=== PATIENT | male | born 1975 | race Caucasian/White ===

== ENCOUNTER 2020-07-03 12:58 | Outpatient (REF) | payer OTHER, SELFPAY | END 2020-07-03 12:59 | disposition home or self-care (01) | LOC: HO.BBR 12:58 | PROVIDERS: Visit Provider Internal Medicine Medical Oncology | DX: D75.1 Secondary polycythemia (principal) | CPT/HCPCS: 36415; 85014; 85018; 99195 ==

== ENCOUNTER 2020-07-20 08:15 | Outpatient (REF) | payer OTHER, SELFPAY ==
[2020-07-20 09:34] LABS: Cholesterol 221 mg/dL; HDL Cholesterol 40 mg/dL; LDL Cholesterol Calculated 162 mg/dl; Triglycerides 95 mg/dL
== END 2020-07-20 08:16 | disposition home or self-care (01) ==
LOC: HO.LAB 08:15
PROVIDERS: Visit Provider Internal Medicine
DX: E78.00 Pure hypercholesterolemia, unspecified (principal)
CPT/HCPCS: 80061

== ENCOUNTER 2020-10-02 13:04 | Outpatient (REF) | payer OTHER, SELFPAY | END 2020-10-02 13:05 | disposition home or self-care (01) | LOC: HO.BBR 13:04 | PROVIDERS: Visit Provider Internal Medicine Medical Oncology | DX: D75.1 Secondary polycythemia (principal) | CPT/HCPCS: 85018; 99195 ==

== ENCOUNTER → 2020-10-05 10:31 | Outpatient (BNV) | payer OTHER, SELFPAY | PROVIDERS: PCP Internal Medicine; Visit Provider Internal Medicine Medical Oncology | DX: D75.1 Secondary polycythemia (principal) | CPT/HCPCS: 99213 ==

== ENCOUNTER 2021-01-01 13:08 | Outpatient (REF) | payer OTHER, SELFPAY | END 2021-01-01 13:09 | disposition home or self-care (01) | LOC: HO.BBR 13:08 | PROVIDERS: PCP Internal Medicine; Visit Provider Internal Medicine Medical Oncology | DX: D75.1 Secondary polycythemia (principal) | CPT/HCPCS: 85018; 99195 ==

== ENCOUNTER 2021-04-02 13:11 | Outpatient (REF) | payer OTHER, SELFPAY | END 2021-04-02 13:12 | disposition home or self-care (01) | LOC: HO.BBR 13:11 | PROVIDERS: PCP Internal Medicine; Visit Provider Internal Medicine Medical Oncology | DX: D75.1 Secondary polycythemia (principal) | CPT/HCPCS: 85018; 99195 ==

== ENCOUNTER 2021-06-24 14:02 | Outpatient (REF) | payer OTHER, SELFPAY | END 2021-06-24 14:03 | disposition home or self-care (01) | LOC: HO.BBR 14:02 | PROVIDERS: Visit Provider Internal Medicine Medical Oncology | DX: D75.1 Secondary polycythemia (principal) | CPT/HCPCS: 85018; 99195 ==

== ENCOUNTER 2021-09-24 13:56 | Outpatient (REF) | payer OTHER, SELFPAY | END 2021-09-24 13:57 | disposition home or self-care (01) | LOC: HO.BBR 13:56 | PROVIDERS: Visit Provider Internal Medicine Medical Oncology | DX: D75.1 Secondary polycythemia (principal) | CPT/HCPCS: 85018; 99195 ==

== ENCOUNTER 2021-12-24 13:06 | Outpatient (REF) | payer OTHER, SELFPAY | END 2021-12-24 13:07 | disposition home or self-care (01) | LOC: HO.BBR 13:06 | PROVIDERS: Visit Provider Internal Medicine Medical Oncology | DX: D75.1 Secondary polycythemia (principal) | CPT/HCPCS: 85014; 85018; 99195 ==

== ENCOUNTER 2022-03-25 13:00 | Outpatient (REF) | payer OTHER, SELFPAY | END 2022-03-25 13:01 | disposition home or self-care (01) | LOC: HO.BBR 13:00 | PROVIDERS: Visit Provider Internal Medicine Medical Oncology | DX: D75.1 Secondary polycythemia (principal) | CPT/HCPCS: 85018; 99195 ==

== ENCOUNTER 2022-06-24 13:02 | Outpatient (REF) | payer OTHER, SELFPAY | END 2022-06-24 13:03 | disposition home or self-care (01) | LOC: HO.BBR 13:02 | PROVIDERS: Visit Provider Internal Medicine Medical Oncology | DX: D75.1 Secondary polycythemia (principal) | CPT/HCPCS: 85018; 99195 ==

== ENCOUNTER 2022-09-23 12:59 | Outpatient (REF) | payer OTHER, SELFPAY | END 2022-09-23 13:00 | disposition home or self-care (01) | LOC: HO.BBR 12:59 | PROVIDERS: PCP Internal Medicine; Visit Provider Internal Medicine Medical Oncology | DX: D75.1 Secondary polycythemia (principal) | CPT/HCPCS: 85018; 99195 ==

== ENCOUNTER 2022-12-05 14:05 | Outpatient (REF) | payer OTHER, SELFPAY | END 2022-12-05 14:06 | disposition home or self-care (01) | LOC: HO.BBR 14:05 | PROVIDERS: Visit Provider Internal Medicine Medical Oncology | DX: D75.1 Secondary polycythemia (principal) | CPT/HCPCS: 85014; 85018; 99195 ==

== ENCOUNTER 2023-01-27 12:59 | Outpatient (REF) | payer OTHER, SELFPAY | END 2023-01-27 13:00 | disposition home or self-care (01) | LOC: HO.BBR 12:59 | PROVIDERS: PCP Internal Medicine; Visit Provider Internal Medicine Medical Oncology | DX: D75.1 Secondary polycythemia (principal) | CPT/HCPCS: 85014; 85018; 99195 ==

== ENCOUNTER 2023-02-21 07:58 | Outpatient (AMB) | payer OTHER, SELFPAY ==
--- NOTE | 2023-02-21 08:00 | A.OFFVIS_ITS ---
Intake Vital Signs 02/21/23 08:01 Height 5 ft 11 in Weight 227 lb 1.218 oz BMI 31.7 BP 130/84 Blood Pressure Location Lt brachial Position Sitting Pulse 82 Intake Visit Reasons: Colonoscopy screening Intake Note: Adam presents in the office as a Colonoscopy Screening. CC: He states that he is not having any concerns today. 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 He is referred by Ovi Verma of [facility] [place] [facility] primary care. PMX Allergic rhinitis LUIS a Anxiety/insomnia Obesity * SURGICAL HISTORY Appendectomy LASIK surgery * ALLERGIES: NKDA * [employer] LABS: Laboratory Tests 12/02/22 12/02/22 13:07 13:07 WBC 7.9 Hgb 17.2 Hct 51.5 Plt Count 243 Estimated GFR > 60 Total Bilirubin 0.8 AST 21 ALT 36 Alkaline Phosphata se 72 TODAY'S VISIT This is his first colonoscopy. He denies any bowel or upper GI problems. There are no prior problems with anesthesia or sedation. He denies any cardiac or respiratory problems There are no ID problems. His father had colon polyps removed. [facility] Medical History Acute seasonal allergic rhinitis Generalized anxiety disorder Insomnia, idiopathic Obesity (BMI 30.0-34.9) Obstructive sleep apnea Surgical History Hx of appendectomy Hx of LASIK Family History Father Stroke Mother No problems noted. Sister Healthy adult Brother Healthy adult Mother Breast cancer Maternal Grandfather Heart attack Social History Household Members: Significant Other Housing: House Are you a primary healthcare sales representative to a significant other at home: No Do you presently have visiting nurse or other home services: No Alcohol intake: current Alcohol intake frequency: a few times a week Patient Tobacco Use Status: Never used Tobacco Years Smoked: 1 year - childhood service: No Current occupational status: employed Review of Systems Const Denies fatigue, Denies fever(s), Denies night sweats, Denies poor appetite and Denies weight loss ENT Reports Normal hearing present, Denies dental pain, Denies dysphagia, Denies hearing loss, Denies mouth pain, Denies odynophagia, Denies throat swelling, Denies tongue swelling and Reports other (Dentition adequate) Card Reports no additional complaints Resp Reports no additional complaints GI Denies abdominal pain, Denies melena, Denies bloating, Denies hematochezia, Denies constipation, Denies GI cramping, Denies dysphagia, Denies excessive flatus, Denies early satiety, Denies heartburn, Denies diarrhea, Denies nausea, Denies odynophagia, Denies vomiting and Denies hematemesis Skin/Breast Denies pruritus, Denies lesions, Denies rash and Denies jaundice Neuro Reports Normal hearing present and Denies Abnormal speech present Endo Denies fatigue Aller/Immun Denies throat swelling and Denies tongue swelling Physical Exam Vital Signs: Last Vital Signs Pulse 82 02/21/23 08:01 BP 130/84 02/21/23 08:01 BMI result Body Mass Index 31.7 Const General: cooperative, no acute distress, well developed and well groomed Nutritional Appearance: well nourished and overweight Orientation/consciousness: oriented to person, oriented to place and oriented to time Limitations: No language barrier HEENT Head: Yes normocephalic and Yes atraumatic Eyes General: appearance normal, both eyes and all related structures Pupils: Equal, round and reactive pupils present Neck Neck: Yes normal visual inspection and Yes no lymphadenopathy Thyroid: Thyroid normal Resp Effort & Inspection: normal respiratory effort and able to speak in complete sentences Auscultation: clear to auscultation bilaterally Cardio Rate: regular rate Rhythm: regular rhythm Heart sounds: Normal, physiologic split S2 sound present Peripheral pulses: radial pulses present and posterior tibial pulses present GI Inspection: No distended, No Abdominal panniculus present, Yes obesity and Yes scar Palpation (GI): Soft to palpation, nontender, no guarding, not rigid and No hepatosplenomegaly present Percussion: Yes normal to percussion Auscultation: normal bowel sounds Rectal Exam - Male: Yes deferred Skin General skin exam: no rashes or lesions noted, turgor normal, skin not dry, no jaundice, No spider nevi and no striae Rashes: no rashes Nails: normal Neuro General: oriented to person, oriented to place and oriented to time Cranial nerves: Yes Equal, round and reactive pupils present and Yes Normal hearing present Speech: No Abnormal speech present Extrem General: Yes normal to inspection, No clubbing, No cyanosis and No edema Psych Appearance: grossly normal and well kempt Mental Status: mental status grossly normal Speech and movement: Normal speech and movement present Affect: normal affect Attitude: cooperative Thought process: Normal thought process present and not confabulating Thought content: Normal thought content present Insight: Good insight present (Psych) Judgement: Good judgement present (Psych) Assessment & Plan Assessment & Plan (1) Pre-op examination: Code(s): Z01.818 - Encounter for other preprocedural examination Plan: This is his first colonoscopy. He denies any bowel or upper GI problems. There are no prior problems with anesthesia or sedation. He denies any cardiac or respiratory problems There are no ID problems. His father had colon polyps removed. Medications: New peg 3350-electrolytes 236-22.74-6.74 -5.86 gram (Golytely) until fecal effluent is clear; do not exceed a total volume of 2,000 mL 240 mL PO Q10M 1 day 4,000 mL 0RF Z12.11 - Encounter for screening for malignant neoplasm of colon Coding Level of Care Code New Pt Level 3 (92713) Diagnoses Pre-op examination Z01.818
[2023-02-21 08:01] VITALS: BP 130/84; PULSE 82; BMI 31.7
== END 2023-02-21 08:58 | disposition home or self-care (01) ==
PROVIDERS: PCP Internal Medicine; Visit Provider Nurse Practitioner
DX: Z01.818 Encounter for other preprocedural examination (principal); Z12.11 Encounter for screening for malignant neoplasm of colon
CPT/HCPCS: S0285

== ENCOUNTER → 2023-02-21 07:58 | Outpatient (BNVA) | payer OTHER, SELFPAY | PROVIDERS: PCP Internal Medicine; Visit Provider Nurse Practitioner ==

== ENCOUNTER 2023-03-23 08:53 | Outpatient (REF) | payer OTHER, SELFPAY ==
--- NOTE | ~2023-03-23 | XR_ITS ---
EXAMINATION: XR CHEST CLINICAL INFORMATION: Sleep apnea. COMPARISON: None available. TECHNIQUE: 2 views of the chest were obtained. FINDINGS: The lung volumes are low. The cardiomediastinal silhouette is within normal limits for technique and level of inspiration. There is no focal lung consolidation or pleural effusion. The bony structures and soft tissues are unremarkable. XR/XR chest 2V IMPRESSION: Low lung volumes limits evaluation. No evidence for active cardiopulmonary disease.
[2023-03-23 10:30] LABS: MANUAL DIFF FLAG NO
[2023-03-23 10:43] LABS: Basophils Absolute Auto 0.1 X10*3/uL (0.0-0.2); Basophils Percent Auto 1.5 % (0-2); Eosinophils Absolute Auto 0.2 X10*3/uL (0.0-0.4); Eosinophils Percent Auto 3.7 % (0-4); Hematocrit 52.3 % (42.0-52.0); Imm Gran Abs Auto 0.05 X10*3/uL (0.00-0.03); Lymphocytes Absolute Auto 1.5 X10*3/uL (1.2-4.9); Lymphocytes Percent Auto 29.6 % (20-40); Mean Corpuscular HGB Conc 32.5 g/dl (31.0-36.0); Mean Corpuscular Hemoglobin 27.7 pg (27.0-33.0); Mean Corpuscular Volume 85.3 fL (80.0-98.0); Mean Platelet Volume 10.2 fL (9.4-12.4); Monocytes Absolute Auto 0.6 X10*3/uL (0.1-1.2); Monocytes Percent Auto 12.1 % (2-11); Neutrophils Absolute Auto 2.7 x10*3/uL (2.0-8.3); Neutrophils Percent Auto 52.1 % (45-73); Platelet Count 260 X10*3/uL (160-400); Red Blood Count 6.13 X10*6/uL (4.60-5.80); Red Cell Distribution Width 14.4 % (11.0-16.0); White Blood Count 5.2 X10*3/uL (4.8-10.8)
[2023-03-23 10:53] LABS: Estimated Average Glucose 94 mg/dL; Hemoglobin A1c % 4.9 % (<6.0)
[2023-03-23 11:17] LABS: Alanine Aminotransferase 32 U/L (0-40); Albumin Level 4.2 g/dL (3.5-5.0); Alkaline Phosphatase 68 U/L (39-117); Anion Gap 10 (12-20); Aspartate Amino Transferase 24 U/L (5-37); Bilirubin Total 0.8 mg/dL (0.0-1.0); Blood Urea Nitrogen 13 mg/dL (9-16); Calcium 9.4 mg/dL (8.4-10.2); Carbon Dioxide 25 mmol/L (22-29); Chloride 106 mmol/L (96-108); Cholesterol 207 mg/dL (<200); Estimated Glomerular Filt Rate > 60; Glucose Random 98 mg/dL (60-115); HDL Cholesterol 40 mg/dL (>40); LDL Cholesterol Calculated 148 mg/dL (<100); Potassium 4.3 mmol/L (3.3-5.1); Sodium 137 mmol/L (135-145); Total Protein 7.4 g/dL (6.5-8.0); Triglycerides 98 mg/dL (<150)
[2023-03-23 11:33] LABS: Free T4 (Free Thyroxine) 0.97 ng/dL (0.71-1.85); Thyroid Stimulating Hormone 2.11 uIU/mL (0.32-4.0)
[2023-03-23 11:46] LABS: Folate 13.6 ng/mL (> or = 4.0); Vitamin B12 1854 pg/mL (200-900)
[2023-03-28 13:18] LABS: Testosterone, Total 692 ng/dL (250-1100)
== END 2023-03-23 08:54 | disposition home or self-care (01) ==
LOC: HO.LAB 08:53
PROVIDERS: Visit Provider Internal Medicine
DX: D75.1 Secondary polycythemia (principal); R73.9 Hyperglycemia, unspecified; G47.33 Obstructive sleep apnea (adult) (pediatric); E78.00 Pure hypercholesterolemia, unspecified
CPT/HCPCS: 36415; 71046; 80053; 80061; 82607; 82746; 83036; 84403; 84439; 84443; 85025

== ENCOUNTER 2023-04-07 12:30 | Outpatient (REF) | payer OTHER, SELFPAY | END 2023-04-07 12:31 | disposition home or self-care (01) | LOC: HO.BBR 12:30 | PROVIDERS: PCP Internal Medicine; Visit Provider Internal Medicine Medical Oncology | DX: D75.1 Secondary polycythemia (principal) | CPT/HCPCS: 85018; 99195 ==

== ENCOUNTER 2023-04-11 11:21 | Outpatient (AMB) | payer OTHER, SELFPAY ==
[2023-04-11 11:24] VITALS: BP 132/78; PULSE 102; O2SAT 95; BMI 31.7
--- NOTE | 2023-04-11 11:24 | MHC.PC.OV ---
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 Accompanied by: Self / Same As Patient Allergies Seasonal Allergies Allergy (Verified 04/11/23 11:27) Unknown Medication List - Last Reconciled 04/11/23 by Ovi Verma MD aspirin 81 mg PO DAILY [AUTO PAP 6-16 cm H20 humidified AIR As directed] ergocalciferol (vitamin D2) 1,000 units PO DAILY fluticasone propionate 50 mcg/actuation 1 spray intranasal DAILY olopatadine 0.2% 1 drp ophthalmic (eye) BEDTIME peg 3350-electrolytes 236-22.74-6.74 -5.86 gram (Golytely) 240 mL PO Q10M 1 day Tobacco use date assessed: 12/16/22 Dental Screening Dental Screen Date: 04/11/23 Did you have a dental visit in the last 12 months?: Yes Did you have a dental problem in the last 6 months where you did not have access to dental care?: No Was dental information given to patient?: Patient has dentist HPI 3 MONTH F/U HPI Details 78-year-old obese male with an elevated blood sugar hypercholesterolemia obstructive sleep apnea and erythrocytosis last seen in November 2022 patient is here for follow-up patient follows up with hematology oncology and has therapeutic phlebotomy erythrocytosis likely account for associated hypoxemia patient on baby aspirin. Patient continues with the therapeutic phlebotomy. Has met with the aircraft cleaning supervisor and will be scheduled for colonoscopy. As for the blood work done noted elevated cholesterol but it is a little bit better on diet. Patient feels the cholesterol is more genetic and he does have a good diet. Keeps active with exercise. As for the sleep apnea patient uses the CPAP more than 4 hours a night and benefits from this. Discussed that this may be the time to do a note prescription for the CPAP. Two thousand eighteen last sleep study. [facility] Medical History Acute seasonal allergic rhinitis Generalized anxiety disorder Insomnia, idiopathic Obesity (BMI 30.0-34.9) Obstructive sleep apnea Surgical History Hx of LASIK Hx of appendectomy Family History (Updated 04/11/23 @ 11:28 by TC Amador) Father Stroke Mother No problems noted. Sister Healthy adult Brother Healthy adult Mother Breast cancer Maternal Grandfather Heart attack Social History Household Members: Significant Other Housing: House Are you a primary critical care rn to a significant other at home: No Do you presently have visiting nurse or other home services: No Alcohol intake: current Alcohol intake frequency: a few times a week Patient Tobacco Use Status: Never used Tobacco Years Smoked: 1 year - childhood e-Cigarette/Vaping Use: Never Used Second Hand Smoke Exposure: No service: No Current occupational status: employed Current occupational exposures/hazards: No Cognitive needs: No Hearing needs: No Vision needs: No Questionnaire Thrive Questionnaire Date Thrive assessed: 12/16/22 AURY-7 AMB Questionnaire AURY-7 Date AURY - 7 assessed: 12/16/22 Source: Developed by Drs. Song Wolff, Cyndi Marie, Bernardo Garay and colleagues, with an educational nikkie from [employer]. Physical exam (Primary Care) Vital Signs: Last Vital Signs Pulse 102 H 04/11/23 11:24 BP 132/78 04/11/23 11:24 Pulse Ox 95 04/11/23 11:24 Oxygen Delivery Method Room Air 04/11/23 11:24 BMI result Body Mass Index 31.7 Tobacco/Smoking Status: Tobacco use Status Tobacco use date assessed 12/16/22 04/11/23 11:30 Patient Tobacco Use Status Never used Tobacco 04/11/23 11:30 e-Cigarette/Vaping Use Never Used 04/11/23 11:30 Thrive Assessment: Date of Thrive Assessment Date Thrive assessed 12/16/22 04/11/23 11:30 Const General: alert; No acute distress Eyes Conjunctivae: conjunctivae normal Resp Auscultation: clear to auscultation bilaterally Cardio Rate: regular rate Rhythm: regular rhythm GI Inspection: Yes normal to inspection Extrem General: Yes normal to inspection and No edema Assessment and Plan Assessment & Plan (1) Colon cancer screening: Code(s): Z12.11 - Encounter for screening for malignant neoplasm of colon Plan: Patient has met with the aircraft cleaning supervisor but has not made a schedule yet. (2) Hypercholesterolemia: Code(s): E78.00 - Pure hypercholesterolemia, unspecified Plan: Avoid fried foods, chicken skin, eggs, butter margarine, pastries and meat. Be it pork or beef they have a lot of cholesterol LDL goal of less than 130 and triglyceride of less than 150. Would rather do diet and exercise (3) Erythrocytosis: Code(s): D75.1 - Secondary polycythemia Plan: Patient continues to follow-up with Hematology-Oncology on therapeutic phlebotomy (4) Obesity (BMI 30.0-34.9): Code(s): E66.9 - Obesity, unspecified Plan: Diet and exercise (5) Obstructive sleep apnea: Comment: CPAP sleep study test 2017 Code(s): G47.33 - Obstructive sleep apnea (adult) (pediatric) Plan: Continues to use the CPAP more than 4 hours a night and benefits from this Medications: New [AUTO PAP 6-16 cm H20 humidified AIR] As directed 1 ea 0RF G47.33 - Obstructive sleep apnea (adult) (pediatric) Coding Level of Care Code Est Pt Level 4 (57216) Diagnoses Colon cancer screening Z12.11 Hypercholesterolemia E78.00 Erythrocytosis D75.1 Obesity (BMI 30.0-34.9) E66.9 Obstructive sleep apnea G47.33
== END 2023-04-11 12:13 | disposition home or self-care (01) ==
PROVIDERS: PCP Internal Medicine; Visit Provider Internal Medicine
DX: E78.00 Pure hypercholesterolemia, unspecified (principal); Z12.11 Encounter for screening for malignant neoplasm of colon; E66.9 Obesity, unspecified; Z68.31 Body mass index [BMI] 31.0-31.9, adult; D75.1 Secondary polycythemia; G47.33 Obstructive sleep apnea (adult) (pediatric)
CPT/HCPCS: 99214

== ENCOUNTER 2023-06-09 12:03 | Outpatient (REF) | payer OTHER, SELFPAY | END 2023-06-09 12:04 | disposition home or self-care (01) | LOC: HO.BBR 12:03 | PROVIDERS: PCP Internal Medicine; Visit Provider Internal Medicine Medical Oncology | DX: D75.1 Secondary polycythemia (principal) | CPT/HCPCS: 85018; 99195 ==

== ENCOUNTER 2023-08-25 08:24 | Outpatient (REF) | payer OTHER, SELFPAY | END 2023-08-25 08:25 | disposition home or self-care (01) | LOC: HO.BBR 08:24 | PROVIDERS: PCP Internal Medicine; Visit Provider Internal Medicine Medical Oncology | DX: D75.1 Secondary polycythemia (principal) | CPT/HCPCS: 85018; 99195 ==

== ENCOUNTER 2023-08-30 07:24 | Day surgery (SDC) | payer OTHER, SELFPAY ==
[2023-08-28 13:54] VITALS: BMI 31.7
--- NOTE | 2023-08-29 11:40 | P.CONAN_ITS ---
Documented by User: Giana Perez NP 08/29/23 11:43 HPI - Anesthesia Eval Consult details Narrative: 48yo M for Colonoscopy Erythrocytosis with therapeutic phlebs Q3 months PMFSH Active Problems Active Problems: All Active Problems (Updated 08/28/23 @ 13:54 by Andra Peraza RN) Pre-op examination (Acute) Colon cancer screening (Acute) Hypercholesterolemia (Acute) Elevated blood sugar (Acute) Erythrocytosis (Acute) Generalized anxiety disorder (Acute) Insomnia, idiopathic (Acute) Obesity (BMI 30.0-34.9) (Acute) Obstructive sleep apnea (Acute) Past Medical History Medical History (Updated 08/28/23 @ 13:54 by Andra Peraza RN) COVID-19 Erythrocytosis Generalized anxiety disorder Insomnia, idiopathic Acute seasonal allergic rhinitis Obesity (BMI 30.0-34.9) Obstructive sleep apnea Family History Family History (Updated 04/11/23 @ 11:28 by TC Amador) Father Stroke Mother No problems noted. Sister Healthy adult Brother Healthy adult Mother Breast cancer Maternal Grandfather Heart attack Surgical History Surgical History (Updated 08/28/23 @ 13:54 by Andra Peraza RN) Hx of wisdom tooth extraction Hx of LASIK Hx of appendectomy Social History Social History Household Members: Significant Other Housing: House Are you a primary critical care nurse to a significant other at home: No Do you presently have visiting nurse or other home services: No Alcohol intake: current Alcohol intake frequency: does not drink Patient Tobacco Use Status: Never used Tobacco Years Smoked: 1 year - childhood e-Cigarette/Vaping Use: Never Used Second Hand Smoke Exposure: No Use of substances other than those prescribed or required for medical reasons: No Have you been hit, kicked, punched, or otherwise hurt by someone within the past year? If so, by whom?: No Are you DNR?: No Advance Directives: No Advance Directives Information Provided: Yes Advance Directives on File: No Recently lost weight without trying: No Eating poorly because of decreased appetite: No Nutrition Risks: No Nutritional Risk Poor oral hygiene: No service: No Current occupational status: employed Current occupational exposures/hazards: No Cognitive needs: No Hearing needs: No Vision needs: No Meds Allergies Allergy/AdvReac Type Severity Reaction Status Date / Time Seasonal Allergies Allergy Unknown Verified 04/11/23 11:27 Home Medications Medication Instructions Recorded Confirmed Last Taken Type fluticasone propionate 50 1 spray intranasal DAILY PRN 07/06/20 08/28/23 Unknown History mcg/actuation nasal Allergy Symptoms spray,suspension aspirin 81 mg tablet,delayed 81 mg PO DAILY 10/05/20 08/28/23 08/24/23 History release ergocalciferol (vitamin D2) 1,000 1,000 unit PO DAILY 10/05/20 08/28/23 08/24/23 History unit capsule olopatadine 0.2 % eye drops 1 drp ophthalmic (eye) BEDTIME PRN 12/16/22 08/28/23 Unknown History Allergy Symptoms Exam Height,Weight and Vital Signs: Height 5 ft 11 in Weight 102.965 kg Pertinent Lab Results Pertinent Lab Results: Laboratory Tests 06/05/23 14:19 WBC 5.7 Hgb 16.2 Hct 48.9 Plt Count 252 Sodium 141 Potassium 4.1 Chloride 106 Carbon Dioxide 28 BUN 15 Creatinine 1.06 Assessment and Plan Assessment Anesthesia Assessment: Chart Reviewed Documented by User: Armida Mayers MD 08/30/23 07:57 PMFSH Past Medical History Medical History (Updated 08/28/23 @ 13:54 by Andra Peraza RN) COVID-19 Erythrocytosis Generalized anxiety disorder Insomnia, idiopathic Acute seasonal allergic rhinitis Obesity (BMI 30.0-34.9) Obstructive sleep apnea Family History Family History (Updated 04/11/23 @ 11:28 by TC Amador) Father Stroke Mother No problems noted. Sister Healthy adult Brother Healthy adult Mother Breast cancer Maternal Grandfather Heart attack Family history of problems with anesthesia: No Surgical History Surgical History (Updated 08/28/23 @ 13:54 by Andra Peraza RN) Hx of wisdom tooth extraction Hx of LASIK Hx of appendectomy History of Problems with Anesthesia: No Social History Social History Household Members: Significant Other Housing: House Are you a primary critical care nurse to a significant other at home: No Do you presently have visiting nurse or other home services: No Alcohol intake: current Alcohol intake frequency: does not drink Patient Tobacco Use Status: Never used Tobacco Years Smoked: 1 year - childhood e-Cigarette/Vaping Use: Never Used Second Hand Smoke Exposure: No Use of substances other than those prescribed or required for medical reasons: No Have you been hit, kicked, punched, or otherwise hurt by someone within the past year? If so, by whom?: No Are you DNR?: No Advance Directives: No Advance Directives Information Provided: Yes Advance Directives on File: No Recently lost weight without trying: No Eating poorly because of decreased appetite: No Nutrition Risks: No Nutritional Risk Poor oral hygiene: No service: No Current occupational status: employed Current occupational exposures/hazards: No Cognitive needs: No Hearing needs: No Vision needs: No Meds Allergies Allergy/AdvReac Type Severity Reaction Status Date / Time Seasonal Allergies Allergy Unknown Verified 04/11/23 11:27 Home Medications Medication Instructions Recorded Confirmed Last Taken Type fluticasone propionate 50 1 spray intranasal DAILY PRN 07/06/20 08/28/23 Unknown History mcg/actuation nasal Allergy Symptoms spray,suspension aspirin 81 mg tablet,delayed 81 mg PO DAILY 10/05/20 08/28/23 08/24/23 History release ergocalciferol (vitamin D2) 1,000 1,000 unit PO DAILY 10/05/20 08/28/23 08/24/23 History unit capsule olopatadine 0.2 % eye drops 1 drp ophthalmic (eye) BEDTIME PRN 12/16/22 08/28/23 Unknown History Allergy Symptoms Exam Airway Mallampati Class: III TM Dist: >3cm Neck ROM: Full Assessment and Plan Assessment Anesthesia Assessment: Anesthesia Plan Discussed Final Anesthetic Review Family History of Problems with Anesthesia: No History of Problems with Anesthesia: No NPO: Yes ASA Class: III Final Preanesthetic Review: No Changes in Pt Med Stat, Meds/Allgs Chart Reviewed, Consent Obtained/Reviewed and Anes Risks/Benef Reviewed Patient Risk: Intermediate Procedure Risk: Low Anesthetic Plan Anesthetic Plan: TIVA Disposition: Standard PACU
[2023-08-30 07:39] VITALS: BP 125/89; PULSE 88; RESP 18; TEMP 36.1; O2SAT 97; BMI 31.2
[2023-08-30] MEDS: Lactated Ringers 1,000 ML 100 ML IVCONT (08:05)
--- NOTE | 2023-08-30 08:31 | P.HPSUR_ITS ---
Pre-Procedural Eval Section A - 24 Hr Update-Section A only Date of Service: 08/30/23 Section B - Complete if H&P > 30 days Chief Complaint: screening Relevant Family History (Specify if Yes): No Relevant Social History: None Present Medications: see Short Stay Collaborative assessment Medical History: Significant History (COVID-19 Erythrocytosis Generalized anxiety disorder Insomnia, idiopathic Acute seasonal allergic rhinitis Obesity (BMI 30.0-34.9) Obstructive sleep apnea) History of Previous Operations: Relevant previous surgery/procedure and date(s) (Hx of wisdom tooth extraction Hx of LASIK Hx of appendectomy) Allergies: Allergies Allergy/AdvReac Type Severity Reaction Status Date / Time Seasonal Allergies Allergy Unknown Verified 04/11/23 11:27 Review of Systems Sugical H&P ROS: Negative: Constitution, Cardiovascular, Respiratory, Neurologic al, Psychiatric, Hem-Onc, Allergic/Immunologic, Gastrointestinal, Genitourinary, Musculoskeletal, Integumentary, Endocrine and Eyes/Ears/Nose/Throat Exam Surgical H&P Exam: Normal: HEENT, Normal: Heart, Normal: Lungs, Normal: Extremities, Normal: Abdomen, Normal: Skin and Normal: Neurological Plan Diagnosis/Plan: Unchanged I have reviewed the history and physical and performed a pertinent physical examination on my patient. No changes have occurred unless specified. Time Spent With Patient Time: Total time managing care of this patient today ____ minutes.
--- NOTE | 2023-08-30 08:54 | W.PM.OPN ---
Operative Note Operative Note Date of Service: 08/30/23 Narrative: Operative Information Procedure Description: Colonoscopy Indication: screening Anesthesia: MAC COLONOSCOPY Instrument: Olympus variable stiffness pediatric scope 190L Colonoscopy Monitoring: Vital signs and clinical assessment, continuous EKG monitoring, Pulse oximetry, Carbon Dioxide monitoring and blood pressure monitoring were done throughout the procedure. Colon withdrawal time was 17 minutes. Procedure: The patient was placed in the left lateral decubitis position and pre-procedure medications were administered. After a digital rectal examination of the ano-rectum, the video colonoscope was inserted into the rectum and advanced through the colon to the cecum/TI. The colonoscope was slowly withdrawn in a retrograde panoramic fashion and the colon mucosa was carefully examined including a retroflexed view of the rectum. Findings and interventions are described below. Procedure Difficulty: easy Findings: Terminal Ileum-normal Cecum: 4-6 mm sessile polyp removed with cold forceps Right sided retroflexion: normal Ascending Colon: few diverticula noted Transverse Colon -normal Descending Colon: 8-9 mm sessile polyp removed with cold snare Sigmoid Colon: 5-7 mm sessile polyp removed with cold snare Rectum: Retroflexion with small internal hemorrhoids, grade I Anorectum - normal Colon preparation: [place] Bowel Preparation Scale Right colon; 2 Transverse colon: 2 Left colon; 2 (0 = Unprepared colon segment with mucosa not seen due to solid stool that cannot be cleared. 1 = Portion of mucosa of the colon segment seen, but other areas of the colon segment not well seen due to staining, residual stool and/or opaque liquid. 2 = Minor amount of residual staining, small fragments of stool and/or opaque liquid, but mucosa of colon segment seen well. 3 = Entire mucosa of colon segment seen well with no residual staining, small fragments of stool or opaque liquid) Impression and Post Procedure Diagnosis: polyps internal hemorrhoids diverticular disease Plan: High fiber diet leaflet Avoid straining at stool, epsom salts and sitz bath, anusol supps or cream Repeat Colonoscopy in 5 years due to polyps or earlier if clinically indicated Above findings were reviewed with the patient and relevant handouts were provided if indicated.
[2023-08-30 09:28] VITALS: BP 113/79; PULSE 101; RESP 16; TEMP 36.2; O2SAT 96
[2023-08-30 09:43] VITALS: BP 136/82; PULSE 81; RESP 16; TEMP 36.2; O2SAT 97
== END 2023-08-30 10:47 | disposition home or self-care (01) ==
PROVIDERS: PCP Internal Medicine; Visit Provider Internal Medicine Gastroenterology
PROC: 0DJD8ZZ Inspection of Lower Intestinal Tract, Via Natural or Artificial Opening Endoscopic (ICD-10-PCS; CPT 45378; principal; 2023-08-30 08:40)
DX: Z12.11 Encounter for screening for malignant neoplasm of colon (principal); D12.0 Benign neoplasm of cecum; D12.4 Benign neoplasm of descending colon; K57.30 Diverticulosis of large intestine without perforation or abscess without bleeding; K64.0 First degree hemorrhoids; E78.00 Pure hypercholesterolemia, unspecified
CPT/HCPCS: 45385; 45380; 88305

== ENCOUNTER → 2023-08-30 07:24 | Outpatient (BNV) | payer OTHER, SELFPAY | PROVIDERS: PCP Internal Medicine; Visit Provider Internal Medicine Gastroenterology | DX: Z12.11 Encounter for screening for malignant neoplasm of colon (principal); K63.5 Polyp of colon; K64.0 First degree hemorrhoids | CPT/HCPCS: 45380; 45385 ==

== ENCOUNTER 2023-09-14 10:54 | Outpatient (AMB) | payer OTHER, SELFPAY ==
--- NOTE | 2023-09-14 11:00 | MHC.OFFVIS ---
Intake Vital Signs 09/14/23 11:01 Height 5 ft 11 in Weight 226 lb BMI 31.5 BP 133/79 Blood Pressure Location Lt brachial Position Sitting Pulse 97 Intake Visit Reasons: s/p colon Intake Note: Patient follow up for Colonoscopy results. Patient denies any GI issues. Account Maintenance Representative Required: No Accompanied by: Self / Same As Patient Allergies Seasonal Allergies Allergy (Verified 09/14/23 10:59) Unknown HPI s/p colon HPI Details Assessment & Plan (1) Pre-op examination: Code(s): Z01.818 - Encounter for other preprocedural examination Plan: This is his first colonoscopy. He denies any bowel or upper GI problems. There are no prior problems with anesthesia or sedation. He denies any cardiac or respiratory problems There are no ID problems. His father had colon polyps removed. Medications: New peg 3350-electroly lisa 236-22.74-6.74 -5.86 gram (Golyt kiya) until feca l effluent is ze r; do not exceed a total volume of 2 ,000 mL 240 mL PO Q10M 1 day 4,000 mL 0RF Z12.11 - Encounter for screening for malignant neoplas m of colon COLONOSCOPY 08/30/23 Findings: Terminal Ileum-normal Cecum: 4-6 mm sessile polyp removed with cold forceps Right sided retroflexion: normal Ascending Colon: few diverticula noted Transverse Colon -normal Descending Colon: 8-9 mm sessile polyp removed with cold snare Sigmoid Colon: 5-7 mm sessile polyp removed with cold snare Rectum: Retroflexion with small internal hemorrhoids, grade I Anorectum - normal Impression and Post Procedure Diagnosis: polyps internal hemorrhoids diverticular disease BIOPSY Received: 08/30/23 Diagnosis A. Cecum, polypectomy: Sessile serrated lesion/polyp; negative for cytologic dysplasia. B. Colon, descending, polypectomy: Sessile serrated lesion/polyp; negative for cytologic dysplasia. C. Colon, sigmoid, polypectomy: Hyperplastic mucosal polyp. TODAY'S VISIT The procedure should be repeated in 5 years. THE PROCEDURE WAS WELL TOLERATED. THE RESULTS WERE EXPLAINED AND THE PATIENT IS AGREEABLE TO THE FOLLOW-UP INTERVAL STATED. THE BOWEL PATTERN HAS RETURNED TO NORMAL. EDUCATION WAS PROVIDED TO TELL ANY 1ST DEGREE RELATIVES ABOUT THEIR FINDINGS TO BE SURE THAT THEY ARE SCREENED BY AGE 45. EDUCATED THAT THEY WILL BE PUT ON A RECALL LIST WHEN IT IS TIME FOR THEIR REPEAT SCOPE BUT SHOULD THEY MOVE OUT OF STATE OR AWAY FROM THE HOSPITAL THEY WILL NEED TO REMEMBER ALONG WITH THEIR PRIMARY TO REPEAT THE PROCEDURE IN A TIMELY FASHION TO AVOID ANY ADVERSE COMPLICATIONS. [facility] Medical History (Updated 09/14/23 @ 11:13 by RENETTA Kumar) COVID-19 Erythrocytosis Generalized anxiety disorder Insomnia, idiopathic Acute seasonal allergic rhinitis Obesity (BMI 30.0-34.9) Obstructive sleep apnea Surgical History Hx of wisdom tooth extraction Hx of LASIK Hx of appendectomy Family History Father Stroke Mother No problems noted. Sister Healthy adult Brother Healthy adult Mother Breast cancer Maternal Grandfather Heart attack Social History Household Members: Significant Other Housing: House Are you a primary child care centre director to a significant other at home: No Do you presently have visiting nurse or other home services: No Alcohol intake: current Alcohol intake frequency: does not drink Patient Tobacco Use Status: Never used Tobacco Years Smoked: 1 year - childhood e-Cigarette/Vaping Use: Never Used Second Hand Smoke Exposure: No service: No Current occupational status: employed Current occupational exposures/hazards: No Cognitive needs: No Hearing needs: No Vision needs: No Review of Systems Const Denies fatigue, Denies fever(s), Denies night sweats, Denies poor appetite and Denies weight loss ENT Reports Normal hearing present, Denies dental pain, Denies dysphagia, Denies hearing loss, Denies mouth pain, Denies odynophagia, Denies throat swelling, Denies tongue swelling and Reports other (Dentition adequate) Card Reports no additional complaints Resp Reports no additional complaints GI Details: Denies abdominal pain, Denies melena, Denies bloating, Denies hematochezia, Denies constipation, Denies GI cramping, Denies dysphagia, Denies excessive flatus, Denies early satiety, Denies heartburn, Denies diarrhea, Denies nausea, Denies odynophagia, Denies vomiting and Denies hematemesis Skin/Breast Denies pruritus, Denies lesions, Denies rash and Denies jaundice Neuro Reports Normal hearing present and Denies Abnormal speech present Endo Denies fatigue Aller/Immun Denies throat swelling and Denies tongue swelling Physical Exam Vital Signs: Last Vital Signs Pulse 97 09/14/23 11:01 BP 133/79 09/14/23 11:01 BMI result Body Mass Index 31.5 Const General: cooperative, no acute distress, well developed and well groomed Nutritional Appearance: well nourished and obese Orientation/consciousness: oriented to person, oriented to place and oriented to time Limitations: No language barrier HEENT Head: Yes normocephalic and Yes atraumatic Eyes General: appearance normal, both eyes and all related structures Pupils: Equal, round and reactive pupils present Neck Neck: Yes normal visual inspection and Yes no lymphadenopathy Thyroid: Thyroid normal Resp Effort & Inspection: normal respiratory effort and able to speak in complete sentences Auscultation: clear to auscultation bilaterally Cardio Rate: regular rate Rhythm: regular rhythm Heart sounds: Normal, physiologic split S2 sound present Peripheral pulses: radial pulses present and posterior tibial pulses present GI Inspection: No distended, No Abdominal panniculus present and Yes obesity Palpation (GI): Soft to palpation, nontender, no guarding, not rigid and No hepatosplenomegaly present Percussion: Yes normal to percussion Auscultation: normal bowel sounds Rectal Exam - Male: Yes deferred Skin General skin exam: no rashes or lesions noted, turgor normal, skin not dry, no jaundice, No spider nevi and no striae Rashes: no rashes Nails: normal Neuro General: oriented to person, oriented to place and oriented to time Cranial nerves: Yes Equal, round and reactive pupils present and Yes Normal hearing present Speech: No Abnormal speech present Psych Appearance: grossly normal and well kempt Mental Status: mental status grossly normal Speech and movement: Normal speech and movement present Affect: normal affect Attitude: cooperative Thought process: Normal thought process present and not confabulating Thought content: Normal thought content present Insight: Good insight present (Psych) Judgement: Good judgement present (Psych) Results Reviewed Results Reviewed: COLONOSCOPY 08/30/23 Findings: Terminal Ileum-normal Cecum: 4-6 mm sessile polyp removed with cold forceps Right sided retroflexion: normal Ascending Colon: few diverticula noted Transverse Colon -normal Descending Colon: 8-9 mm sessile polyp removed with cold snare Sigmoid Colon: 5-7 mm sessile polyp removed with cold snare Rectum: Retroflexion with small internal hemorrhoids, grade I Anorectum - normal Impression and Post Procedure Diagnosis: polyps internal hemorrhoids diverticular disease BIOPSY Received: 08/30/23 Diagnosis A. Cecum, polypectomy: Sessile serrated lesion/polyp; negative for cytologic dysplasia. B. Colon, descending, polypectomy: Sessile serrated lesion/polyp; negative for cytologic dysplasia. C. Colon, sigmoid, polypectomy: Hyperplastic mucosal polyp. Assessment & Plan Assessment & Plan (1) Tubular adenoma of colon: Comment: 2023=2 TA sessile repeat 5 years Code(s): D12.6 - Benign neoplasm of colon, unspecified Plan The procedure should be repeated in 5 years. THE PROCEDURE WAS WELL TOLERATED. THE RESULTS WERE EXPLAINED AND THE PATIENT IS AGREEABLE TO THE FOLLOW-UP INTERVAL STATED. THE BOWEL PATTERN HAS RETURNED TO NORMAL. EDUCATION WAS PROVIDED TO TELL ANY 1ST DEGREE RELATIVES ABOUT THEIR FINDINGS TO BE SURE THAT THEY ARE SCREENED BY AGE 45. EDUCATED THAT THEY WILL BE PUT ON A RECALL LIST WHEN IT IS TIME FOR THEIR REPEAT SCOPE BUT SHOULD THEY MOVE OUT OF STATE OR AWAY FROM THE HOSPITAL THEY WILL NEED TO REMEMBER ALONG WITH THEIR PRIMARY TO REPEAT THE PROCEDURE IN A TIMELY FASHION TO AVOID ANY ADVERSE COMPLICATIONS. Coding Level of Care Code Est Pt Level 3 (80992) Diagnoses Tubular adenoma of colon D12.6
[2023-09-14 11:01] VITALS: BP 133/79; PULSE 97; BMI 31.5
== END 2023-09-14 11:18 | disposition home or self-care (01) ==
PROVIDERS: PCP Internal Medicine; Visit Provider Nurse Practitioner
DX: D12.6 Benign neoplasm of colon, unspecified (principal)
CPT/HCPCS: 99213

== ENCOUNTER → 2023-09-14 10:54 | Outpatient (BNVA) | payer OTHER, SELFPAY | PROVIDERS: PCP Internal Medicine; Visit Provider Nurse Practitioner ==

== ENCOUNTER 2023-11-10 12:59 | Outpatient (REF) | payer OTHER, SELFPAY | END 2023-11-10 13:00 | disposition home or self-care (01) | LOC: HO.BBR 12:59 | PROVIDERS: PCP Internal Medicine; Visit Provider Internal Medicine Medical Oncology | DX: D75.1 Secondary polycythemia (principal) | CPT/HCPCS: 85014; 85018; 99195 ==

== ENCOUNTER 2023-12-13 08:59 | Outpatient (AMB) | payer OTHER, SELFPAY ==
[2023-12-13 09:01] VITALS: BP 152/82; PULSE 81; O2SAT 98; BMI 31.7
--- NOTE | 2023-12-13 09:01 | MHC.PC.OV ---
Vital Signs 12/13/23 09:01 Height 5 ft 11 in Weight 227 lb BMI 31.7 BP 152/82 H Blood Pressure Location Lt brachial Position Sitting Pulse 81 Pulse Source Pulse Oximeter Pulse Oximetry (%) 98 Oxygen Delivery Method Room Air Intake Visit Reasons: pe Allergies Seasonal Allergies Allergy (Verified 12/13/23 09:02) Unknown Medication List - Last Reconciled 12/13/23 by Ovi Verma MD aspirin 81 mg PO DAILY [AUTO PAP 6-16 cm H20 humidified AIR As directed] ergocalciferol (vitamin D2) 1,000 units PO DAILY fluticasone propionate 50 mcg/actuation 1 spray intranasal DAILY PRN olopatadine 0.2% 1 drp ophthalmic (eye) BEDTIME PRN Tobacco use date assessed: 12/13/23 Dental Screening Dental Screen Date: 12/13/23 Did you have a dental visit in the last 12 months?: Yes Did you have a dental problem in the last 6 months where you did not have access to dental care?: No Was dental information given to patient?: Patient has dentist HPI pe HPI Details 48-year-old obese male with erythrocytosis hypercholesterolemia obstructive sleep apnea last seen in March 2023 patient is here for physical exam patient has been having therapeutic phlebotomy under Hematology-Oncology erythrocytosis most likely on associated hypoxemia continue with aspirin once a day patient did have colonoscopy done showing internal hemorrhoids and diverticular disease has had a polypectomy and was advised to follow-up in 5 years [facility] Medical History (Updated 12/13/23 @ 10:08 by Ovi Verma MD) COVID-19 Erythrocytosis Generalized anxiety disorder Insomnia, idiopathic Acute seasonal allergic rhinitis Obesity (BMI 30.0-34.9) Obstructive sleep apnea Surgical History Hx of wisdom tooth extraction Hx of LASIK Hx of appendectomy Family History Father Stroke Mother No problems noted. Sister Healthy adult Brother Healthy adult Mother Breast cancer Maternal Grandfather Heart attack Social History (Updated 12/13/23 @ 09:52 by Ovi Verma MD) Household Members: Significant Other Housing: House Are you a primary customer care assistant to a significant other at home: No Do you presently have visiting nurse or other home services: No Alcohol intake: current Alcohol intake frequency: does not drink Comment: once a week 2-3 drinks Patient Tobacco Use Status: Never used Tobacco Tobacco use type: Cigarette Years Smoked: 1 year - childhood e-Cigarette/Vaping Use: Never Used Second Hand Smoke Exposure: No service: No Current occupational status: employed Current occupational exposures/hazards: No Cognitive needs: No Hearing needs: No Vision needs: No Questionnaire PHQ-9 Over the last 2 weeks, how often have you been bothered by any of the following problems? 1. Little interest or pleasure in doing things: not at all 2. Feeling down, depressed, or hopeless: not at all 3. Trouble falling or staying asleep, or sleeping too much: not at all 4. Feeling tired or having little energy: not at all 5. Poor appetite or overeating: not at all 6. Feeling bad about yourself - or that you are a failure or have let yourself or your family down: not at all 7. Trouble concentrating on things, such as reading the newspaper or watching television: not at all 8. Moving or speaking so slowly that other people could have noticed. Or the opposite - being so fidgety or restless that you have been moving around a lot more than usual: not at all 9. Thoughts that you would be better off or of hurting yourself in some way: not at all Total score: 0 Source: Developed by Drs. Song Wolff, Cyndi Marie, Bernardo Garay and colleagues, with an educational nikkie from [email or web address]. Thrive Questionnaire Date Thrive assessed: 12/13/23 I am a: Patient What is your living situation today?: I have a steady place to live Within the past 12 months, did the food you bought not last and you didn't have the money to get more?: Never true Within the past 12 months, did you worry whether your food would run out before you got money to buy more?: Never true Do you have trouble paying for medicines?: No Do you have trouble getting transportation to medical appointments?: No Do you have trouble paying your heating and electricity bill?: No Do you have trouble taking care of your child, family member or friend?: No Do you have trouble with day-to-day activities such as bathing, preparing meals, shopping, managing finances, etc.?: No Are you currently unemployed and looking for a job?: No Are you interested in more education?: No Currently or been in a relationship where the following occur: no concerns reported THRIVE Score: 0 AUDIT C Alcohol Use Questionnaire (AUDIT-C) 1. How often do you have a drink containing alcohol?: 2-3 times a week 2. How many drinks containing alcohol do you have on a typical day when you are drinking?: 1 or 2 3. How often do you have six or more drinks on one occasion?: Never Total Score: 3 AURY-7 AMB Questionnaire AURY-7 Date AURY - 7 assessed: 12/13/23 Feeling nervous, anxious, or on edge: 0 = Not at all Not being able to stop or control worryin = Not at all Worrying too much about different things: 0 = Not at all Trouble relaxin = Not at all Being so restless that it is hard to sit still: 0 = Not at all Becoming easily annoyed or irritable: 0 = Not at all Feeling afraid as if something awful might happen: 0 = Not at all Total AURY-7 score (0-4 normal; 5-9 mild; 10-14 moderate; 15-21 severe): 0 Source: Developed by Drs. Song Wolff, Cyndi Marie, Bernardo Garay and colleagues, with an educational nikkie from [email or web address]. Review of Systems Const Denies poor appetite and Denies weakness Eyes Denies no additional complaints ENT Reports Normal hearing present, Denies dizziness, Denies nasal congestion, Denies tinnitus and Denies sore throat Card Denies chest pain, Denies syncope, Denies rapid heart rate and Denies dyspnea Resp Denies cough and Denies dyspnea GI Denies change in stool character, Reports constipation, Denies diarrhea, Denies nausea and Denies vomiting Denies dysuria and Denies urinary frequency Neuro Reports Normal hearing present, Denies confusion, Denies dizziness, Denies syncope and Denies weakness Psych Denies confusion Physical exam (Primary Care) Vital Signs: Last Vital Signs Pulse 81 12/13/23 09:01 BP 152/82 H 12/13/23 09:01 Pulse Ox 98 12/13/23 09:01 Oxygen Delivery Method Room Air 12/13/23 09:01 BMI result Body Mass Index 31.7 Tobacco/Smoking Status: Tobacco use Status Tobacco use date assessed 12/13/23 12/13/23 09:08 Patient Tobacco Use Status Never used Tobacco 12/13/23 09:08 Tobacco use type Cigarette 12/13/23 09:08 e-Cigarette/Vaping Use Never Used 12/13/23 09:08 PHQ-9: PHQ-9 Score PHQ-9: Total score 0 12/13/23 09:08 Thrive Assessment: Date of Thrive Assessment Date Thrive assessed 12/13/23 12/13/23 09:08 Currently or been in a relationship where the following occur: no concerns reported Const General: No confusion Orientation/consciousness: No confusion HENMT Head: Yes normocephalic Ears: external ears normal and TM's normal bilaterally Face and sinus: Yes normal facial exam Mouth: moist mucous membranes Throat: Yes tonsils normal Eyes Conjunctivae: conjunctivae normal Pupils: Equal, round and reactive pupils present and Pupil accommodation reflex normal Direct Ophthalmoscopy: normal light reflex Neck Neck: No lymphadenopathy Thyroid: Thyroid normal Chest Chest palpation & inspection: normal inspection of the chest Resp Effort & Inspection: normal respiratory effort and no audible wheezes Auscultation: clear to auscultation bilaterally, no crackles, no wheezes and lung sounds not diminished Cardio Rate: regular rate Rhythm: regular rhythm Peripheral pulses: radial pulses present and dorsalis pedis present GI Other: umbilical hernia , colonoscopy recently done Palpation (GI): no masses Auscultation: normal bowel sounds and normoactive bowel sounds Rectal Exam - Male: Yes deferred Male General Exam: Yes normal external exam Skin General skin exam: no rashes or lesions noted Rashes: no rashes Neuro General: No confusion Cranial nerves: Yes Equal, round and reactive pupils present and Yes Normal hearing present Cognition (Neuro): normal cognition Gait exam (Neuro): Normal gait present Motor exam (neuro): 5/5 motor strength present throughout Deep tendon reflexes (DTR's): Right brachioradialis reflex intensity grade: 2+, Left brachioradialis reflex intensity grade: 2+, Right patellar reflex intensity grade: 2+ and Left patellar reflex intensity grade: 2+ Extrem General: No edema Assessment and Plan Assessment & Plan (1) Annual physical exam: Code(s): Z00.00 - Encounter for general adult medical examination without abnormal findings (2) Obesity (BMI 30.0-34.9): Code(s): E66.9 - Obesity, unspecified Plan: Diet and exercise (3) Obstructive sleep apnea: Comment: CPAP sleep study test 2017 Code(s): G47.33 - Obstructive sleep apnea (adult) (pediatric) Plan: Continue to use the CPAP more than 4 hours a night and benefits from this. Patient does benefit from the CPAP for the treatment of obstructive sleep apnea but concerns still on erythrocytosis and this time blood pressure elevation. Concern about efficacy and so referral to sleep Medicine. (4) Erythrocytosis: Code(s): D75.1 - Secondary polycythemia Plan: Patient is being followed up by hematology oncology and has therapeutic phlebotomy every 3 months (5) Hypercholesterolemia: Code(s): E78.00 - Pure hypercholesterolemia, unspecified Plan: Avoid fried foods, chicken skin, eggs, butter margarine, pastries and meat. Be it pork or beef they have a lot of cholesterol LDL goal of less than 130 and triglyceride of less than 150 patient is advised to retest blood work (6) Tubular adenoma of colon: Comment: 2023=2 TA sessile repeat 5 years Code(s): D12.6 - Benign neoplasm of colon, unspecified Plan: Patient had colonoscopy done in August repeat testing in 5 years (7) Umbilical hernia: Code(s): K42.9 - Umbilical hernia without obstruction or gangrene Plan: Referral to surgeon (8) Blood pressure elevated without history of HTN: Code(s): R03.0 - Elevated blood-pressure reading, without diagnosis of hypertension Plan: Decrease salt intake, advised to monitor blood pressure at home and record. Discussed importance of getting blood pressure under control. Orders: Orders Comprehensive Met. Panel Today E78.00 - Pure hypercholesterolemia, unspecified Prostate Specific Antigen Scr Today E78.00 - Pure hypercholesterolemia, unspecified Ferritin Today E78.00 - Pure hypercholesterolemia, unspecified Complete Blood Count Auto Diff Today E78.00 - Pure hypercholesterolemia, unspecified Free T4 (Free Thyroxine) Today E78.00 - Pure hypercholesterolemia, unspecified Lipid Panel Today E78.00 - Pure hypercholesterolemia, unspecified Thyroid Stimulating Hormone Today E78.00 - Pure hypercholesterolemia, unspecified Vitamin B12 and Folate Today E78.00 - Pure hypercholesterolemia, unspecified IRON PROFILE Today E78.00 - Pure hypercholesterolemia, unspecified Reticulocyte Count Today E78.00 - Pure hypercholesterolemia, unspecified Hemoglobin A1c Today E78.00 - Pure hypercholesterolemia, unspecified Referrals Sleep Medicine Referral G47.33 - Obstructive sleep apnea (adult) (pediatric) General Surgery Referral K42.9 - Umbilical hernia without obstruction or gangrene Coding Level of Care Code Est Pt Prev Care 40-64y(44964) Diagnoses Annual physical exam Z00.00 Obesity (BMI 30.0-34.9) E66.9 Obstructive sleep apnea G47.33 Erythrocytosis D75.1 Hypercholesterolemia E78.00 Tubular adenoma of colon D12.6 Umbilical hernia K42.9 Blood pressure elevated without history of HTN R03.0
== END 2023-12-13 10:11 | disposition home or self-care (01) ==
PROVIDERS: PCP Internal Medicine; Visit Provider Internal Medicine
DX: Z00.00 Encounter for general adult medical examination without abnormal findings (principal); G47.33 Obstructive sleep apnea (adult) (pediatric); D75.1 Secondary polycythemia; E78.00 Pure hypercholesterolemia, unspecified; K42.9 Umbilical hernia without obstruction or gangrene; R03.0 Elevated blood-pressure reading, without diagnosis of hypertension
CPT/HCPCS: 99396

== ENCOUNTER 2023-12-28 08:51 | Outpatient (AMB) | payer OTHER, SELFPAY ==
--- NOTE | 2023-12-28 08:55 | MHC.OFFVIS ---
Vital Signs 12/28/23 09:02 Height 5 ft 11 in Weight 226 lb BMI 31.5 BP 141/86 H Blood Pressure Location Lt brachial Position Sitting Pulse 89 Intake Visit Reasons: Umbilical hernia Intake Note: Patient is seen in office for evaluation and treatment of an umbilical hernia. Pt c/o: feels a lump on the umbilical area, unsure for how long, denies pain, nausea, vomit, diarrhea or constipation Machine Hamper Maker Required: No Accompanied by: Self / Same As Patient Allergies Seasonal Allergies Allergy (Verified 12/28/23 09:03) Unknown Medication List - Last Reconciled 12/28/23 by Castillo Slade MD aspirin 81 mg PO DAILY [AUTO PAP 6-16 cm H20 humidified AIR As directed] ergocalciferol (vitamin D2) 1,000 units PO DAILY fluticasone propionate 50 mcg/actuation 1 spray intranasal DAILY PRN olopatadine 0.2% 1 drp ophthalmic (eye) BEDTIME PRN HPI Comments Details: 48-year-old male patient presenting for evaluation of umbilical hernia. This is been present for several years and has gradually increased in size. He denies significant discomfort but is concerned about performing any heavy lifting for fear of causing an incarceration of the hernia. He denies nausea, vomiting, fever or chills. He denies a previous history of surgery in this location. He is status post open appendectomy as a child. [facility] Medical History COVID-19 Erythrocytosis Generalized anxiety disorder Insomnia, idiopathic Acute seasonal allergic rhinitis Obesity (BMI 30.0-34.9) Obstructive sleep apnea Surgical History Hx of wisdom tooth extraction Hx of LASIK Hx of appendectomy Family History Father Stroke Mother No problems noted. Sister Healthy adult Brother Healthy adult Mother Breast cancer Maternal Grandfather Heart attack Social History Household Members: Significant Other Housing: House Are you a primary senior caregiver to a significant other at home: No Do you presently have visiting nurse or other home services: No Alcohol intake: current Alcohol intake frequency: does not drink Comment: once a week 2-3 drinks Patient Tobacco Use Status: Never used Tobacco Tobacco use type: Cigarette Years Smoked: 1 year - childhood e-Cigarette/Vaping Use: Never Used Second Hand Smoke Exposure: No service: No Current occupational status: employed Current occupational exposures/hazards: No Cognitive needs: No Hearing needs: No Vision needs: No Review of Systems Const All systems reviewed & are unremarkable except as noted in HPI and below Physical Exam Vital Signs: Last Vital Signs Pulse 89 12/28/23 09:02 BP 141/86 H 12/28/23 09:02 BMI result Body Mass Index 31.5 Const General: cooperative and no acute distress Nutritional Appearance: well nourished Orientation/consciousness: patient oriented x3 Limitations: no limitations HEENT Head: Yes normocephalic and Yes atraumatic Ears: hearing grossly normal bilaterally Resp Effort & Inspection: normal respiratory effort, no audible wheezes, no cough and no respiratory distress Cardio Jugular venous distension: no JVD GI Other: Small umbilical hernia measuring less than 2 cm in diameter, reducible with light pressure. Hernias seems to contain preperitoneal fat. No tenderness to palpation. Inspection: Yes normal to inspection Palpation (GI): Soft to palpation, nontender, no guarding and not rigid Abdomen image: 1. Umbilical hernia, less than 2 cm, reducible Skin Other: Warm, dry, no rash Neuro General: patient oriented x3 Extrem General: Yes no clubbing, cyanosis or edema Assessment & Plan Assessment & Plan (1) Umbilical hernia: Code(s): K42.9 - Umbilical hernia without obstruction or gangrene Category: Medical Qualifiers: Obstruction and gangrene presence: without obstruction or gangrene Qualified Code(s): K42.9 - Umbilical hernia without obstruction or gangrene Plan 48-year-old male patient presenting with a small umbilical hernia which has been relatively asymptomatic. The options of continued observation versus elective repair were reviewed in detail. Surgical option including risks alternatives and benefits were discussed as well. He wishes to proceed with the surgery and gives his consent for repair of umbilical hernia with mesh. This will be scheduled at his earliest convenience. Coding Level of Care Code New Pt Level 4 (54900) Diagnoses Umbilical hernia without obstruction and without gangrene K42.9 Obstruction and gangrene presence: without obstruction or gangrene
[2023-12-28 09:02] VITALS: BP 141/86; PULSE 89; BMI 31.5
== END 2023-12-28 09:21 | disposition home or self-care (01) ==
PROVIDERS: PCP Internal Medicine; Referring Provider Internal Medicine; Visit Provider Surgery
DX: K42.9 Umbilical hernia without obstruction or gangrene (principal)
CPT/HCPCS: 99204

== ENCOUNTER → 2023-12-28 08:51 | Outpatient (BNVA) | payer OTHER, SELFPAY | PROVIDERS: PCP Internal Medicine; Referring Provider Internal Medicine; Visit Provider Surgery ==

== ENCOUNTER 2024-02-09 13:01 | Outpatient (REF) | payer OTHER, SELFPAY | END 2024-02-09 13:02 | disposition home or self-care (01) | LOC: HO.BBR 13:01 | PROVIDERS: PCP Internal Medicine; Visit Provider Internal Medicine Medical Oncology | DX: D75.1 Secondary polycythemia (principal) | CPT/HCPCS: 85018; 99195 ==

== ENCOUNTER 2024-04-22 07:41 | Outpatient (REF) | payer OTHER, SELFPAY ==
[2024-04-22 10:13] LABS: MANUAL DIFF FLAG NO
[2024-04-22 10:31] LABS: Basophils Absolute Auto 0.1 X10*3/uL (0.0-0.2); Basophils Percent Auto 1.4 % (0-2); Eosinophils Absolute Auto 0.4 X10*3/uL (0.0-0.4); Eosinophils Percent Auto 6.4 % (0-4); Hematocrit 49.1 % (42.0-52.0); Imm Gran Abs Auto 0.03 X10*3/uL (0.00-0.03); Imm Gran Pct Auto 0.5 % (0.0-0.4); Immature Retic Fraction 19.2 % (2.3-13.4); Lymphocytes Absolute Auto 1.7 X10*3/uL (1.2-4.9); Lymphocytes Percent Auto 29.5 % (20-40); Mean Corpuscular HGB Conc 32.6 g/dl (31.0-36.0); Mean Corpuscular Hemoglobin 26.8 pg (27.0-33.0); Mean Corpuscular Volume 82.2 fL (80.0-98.0); Mean Platelet Volume 10.1 fL (9.4-12.4); Monocytes Absolute Auto 0.6 X10*3/uL (0.1-1.2); Monocytes Percent Auto 10.7 % (2-11); Neutrophils Percent Auto 51.5 % (45-73); Platelet Count 246 X10*3/uL (160-400); Red Blood Count 5.97 X10*6/uL (4.60-5.80); Retic HGB Equivalent 30.3 pg (30.0-35.0); Reticulocyte Percent 1.5 % (0.5-1.8); Reticulocytes Absolute 0.091 X10*6/uL (0.026-0.095); White Blood Count 5.8 X10*3/uL (4.8-10.8)
[2024-04-22 10:54] LABS: Estimated Average Glucose 103 mg/dL; Hemoglobin A1C 135.8022 umol/L; Hemoglobin A1c % 5.2 % (<6.0)
[2024-04-22 10:57] LABS: Alanine Aminotransferase 33 U/L (0-40); Albumin Level 4.1 g/dL (3.5-5.0); Alkaline Phosphatase 68 U/L (39-117); Anion Gap 13 (12-20); Aspartate Amino Transferase 24 U/L (5-37); Bilirubin Total 0.8 mg/dL (0.0-1.0); Blood Urea Nitrogen 18 mg/dL (9-16); Calcium 9.2 mg/dL (8.4-10.2); Carbon Dioxide 24 mmol/L (22-29); Chloride 107 mmol/L (96-108); Cholesterol 212 mg/dL (<200); Estimated Glomerular Filt Rate > 60; Glucose Random 102 mg/dL (60-115); HDL Cholesterol 43 mg/dL (>40); Iron 111 mcg/dL (45-160); LDL Cholesterol Calculated 136 mg/dL (<100); Percent Iron Saturation 29 % (15-50); Sodium 140 mmol/L (135-145); Total Iron Binding Capacity 383 mcg/dL (228-428); Total Protein 7.2 g/dL (6.5-8.0); Triglycerides 169 mg/dL (<150); Unsaturated Iron Binding 272 ug/dL
[2024-04-22 11:13] LABS: Folate 13.6 ng/mL (> or = 4.0); Prostate Specific Antigen Scr 1.56 ng/mL (<0.05-4.0); Vitamin B12 566 pg/mL (200-900)
[2024-04-22 11:21] LABS: Ferritin 13 ng/mL (20-250); Free T4 (Free Thyroxine) 0.87 ng/dL (0.71-1.85); Thyroid Stimulating Hormone 1.88 uIU/mL (0.32-4.0)
== END 2024-04-22 07:42 | disposition home or self-care (01) ==
LOC: HO.HMGCLDS 07:41
PROVIDERS: PCP Internal Medicine; Visit Provider Internal Medicine
DX: E78.00 Pure hypercholesterolemia, unspecified (principal); Z12.5 Encounter for screening for malignant neoplasm of prostate; Z13.1 Encounter for screening for diabetes mellitus
CPT/HCPCS: 36415; 80053; 80061; 82607; 82728; 82746; 83036; 83540; 84153; 84439; 84443; 85025; 85045

== ENCOUNTER 2024-04-24 05:51 | Day surgery (SDC) | payer OTHER, SELFPAY ==
[2024-04-22 12:13] VITALS: BMI 31.5
--- NOTE | 2024-04-22 15:32 | P.CONAN_ITS ---
Documented by User: Giana Perez NP 04/22/24 15:33 HPI - Anesthesia Eval Consult details Narrative: 49yo M for Hernia Umbilical Reducible with mesh PMFSH Active Problems Active Problems: All Active Problems Blood pressure elevated without history of HTN (Acute) Umbilical hernia (Acute) Annual physical exam (Acute) Tubular adenoma of colon (Acute) Pre-op examination (Acute) Colon cancer screening (Acute) Hypercholesterolemia (Acute) Elevated blood sugar (Acute) Erythrocytosis (Acute) Generalized anxiety disorder (Acute) Insomnia, idiopathic (Acute) Obesity (BMI 30.0-34.9) (Acute) Obstructive sleep apnea (Acute) Past Medical History Medical History COVID-19 Erythrocytosis Generalized anxiety disorder Insomnia, idiopathic Acute seasonal allergic rhinitis Obesity (BMI 30.0-34.9) Obstructive sleep apnea Family History Family History Father Stroke Mother No problems noted. Sister Healthy adult Brother Healthy adult Mother Breast cancer Maternal Grandfather Heart attack Family history of problems with anesthesia: No Surgical History Surgical History History of colonoscopy Hx of wisdom tooth extraction Hx of LASIK Hx of appendectomy History of Problems with Anesthesia: No Social History Social History Household Members: Significant Other Housing: House Are you a primary personal care service provider to a significant other at home: No Do you presently have visiting nurse or other home services: No Alcohol intake: current Alcohol intake frequency: holidays/special occasions only Comment: once a week 2-3 drinks Patient Tobacco Use Status: Former Tobacco user Tobacco use type: Cigarette Years Smoked: 1 e-Cigarette/Vaping Use: Never Used Second Hand Smoke Exposure: No Use of substances other than those prescribed or required for medical reasons: No Have you been hit, kicked, punched, or otherwise hurt by someone within the past year? If so, by whom?: No Spiritual Healthcare Practices: none Jainism Healthcare Practices: none Cultural Healthcare Practices: none Are you DNR?: No Advance Directives: No (S.O. is primary contact) Advance Directives Information Provided: Yes (as above noted) Advance Directives on File: No Recently lost weight without trying: No Nutrition Risks: No Nutritional Risk Poor oral hygiene: No service: No Current occupational status: employed Current occupational exposures/hazards: No Cognitive needs: No Hearing needs: No Vision needs: No Meds Allergies Allergy/AdvReac Type Severity Reaction Status Date / Time Seasonal Allergies Allergy Unknown Verified 04/24/24 06:10 Home Medications ?Medication ?Instructions ?Recorded ?Confirmed ?Last Taken ?Type fluticasone propionate 50 1 spray intranasal DAILY PRN 07/06/20 04/24/24 Unknown History mcg/actuation nasal Allergy Symptoms spray,suspension aspirin 81 mg tablet,delayed 81 mg PO DAILY 10/05/20 04/24/24 04/14/24 History release olopatadine 0.2 % eye drops 1 drp ophthalmic (eye) BEDTIME PRN 12/16/22 04/24/24 Unknown History Allergy Symptoms cholecalciferol (vitamin D3) 25 25 mcg PO DAILY 04/22/24 04/24/24 Unknown History mcg (1,000 unit) capsule (Vitamin D3) Exam Height,Weight and Vital Signs: Height 5 ft 11 in Weight 102.512 kg Pertinent Lab Results Pertinent Lab Results: Laboratory Tests 04/22/24 07:44 WBC 5.8 Hgb 16.0 Hct 49.1 Plt Count 246 Sodium 140 Potassium 4.0 Chloride 107 Carbon Dioxide 24 BUN 18 H Creatinine 0.97 Assessment and Plan Assessment Anesthesia Assessment: Chart Reviewed Final Anesthetic Review Family History of Problems with Anesthesia: No History of Problems with Anesthesia: No Documented by User: Dee Dee Zabala MD 04/24/24 07:41 [facility] Past Medical History Medical History COVID-19 Erythrocytosis Generalized anxiety disorder Insomnia, idiopathic Acute seasonal allergic rhinitis Obesity (BMI 30.0-34.9) Obstructive sleep apnea Family History Family History Father Stroke Mother No problems noted. Sister Healthy adult Brother Healthy adult Mother Breast cancer Maternal Grandfather Heart attack Surgical History Surgical History History of colonoscopy Hx of wisdom tooth extraction Hx of LASIK Hx of appendectomy Social History Social History Household Members: Significant Other Housing: House Are you a primary personal care service provider to a significant other at home: No Do you presently have visiting nurse or other home services: No Alcohol intake: current Alcohol intake frequency: holidays/special occasions only Comment: once a week 2-3 drinks Patient Tobacco Use Status: Former Tobacco user Tobacco use type: Cigarette Years Smoked: 1 e-Cigarette/Vaping Use: Never Used Second Hand Smoke Exposure: No Use of substances other than those prescribed or required for medical reasons: No Have you been hit, kicked, punched, or otherwise hurt by someone within the past year? If so, by whom?: No Spiritual Healthcare Practices: none Jainism Healthcare Practices: none Cultural Healthcare Practices: none Are you DNR?: No Advance Directives: No (S.O. is primary contact) Advance Directives Information Provided: Yes (as above noted) Advance Directives on File: No Recently lost weight without trying: No Nutrition Risks: No Nutritional Risk Poor oral hygiene: No service: No Current occupational status: employed Current occupational exposures/hazards: No Cognitive needs: No Hearing needs: No Vision needs: No Meds Allergies Allergy/AdvReac Type Severity Reaction Status Date / Time Seasonal Allergies Allergy Unknown Verified 04/24/24 06:10 Home Medications ?Medication ?Instructions ?Recorded ?Confirmed ?Last Taken ?Type fluticasone propionate 50 1 spray intranasal DAILY PRN 07/06/20 04/24/24 Unknown History mcg/actuation nasal Allergy Symptoms spray,suspension aspirin 81 mg tablet,delayed 81 mg PO DAILY 10/05/20 04/24/24 04/14/24 History release olopatadine 0.2 % eye drops 1 drp ophthalmic (eye) BEDTIME PRN 12/16/22 04/24/24 Unknown History Allergy Symptoms cholecalciferol (vitamin D3) 25 25 mcg PO DAILY 04/22/24 04/24/24 Unknown History mcg (1,000 unit) capsule (Vitamin D3) Exam Airway Mallampati Class: II TM Dist: >3cm Neck ROM: Full Loose/Missing/Broken Teeth: No Heart: RRR Lungs: CTA Assessment and Plan Assessment Anesthesia Assessment: Anesthesia Plan Discussed Final Anesthetic Review NPO: Yes ASA Class: III Final Preanesthetic Review: Meds/Allgs Chart Reviewed, Consent Obtained/Reviewed and Anes Risks/Benef Reviewed Patient Risk: Intermediate Procedure Risk: Low Anesthetic Plan Anesthetic Plan: GA Disposition: Standard PACU
[2024-04-24] VITALS (7 sets, daily range): BP systolic 142–158; BP diastolic 90–107; PULSE 77–96; RESP 14–18; TEMP 36.1–36.6; O2SAT 94–97; BMI 31.7
[2024-04-24] MEDS: Lactated Ringers 1,000 ML 100 ML IVCONT (06:54)
--- NOTE | 2024-04-24 07:34 | MHC.SHP ---
Pre-Procedural Eval Section A - 24 Hr Update-Section A only Date of Service: 04/24/24 The patient is an INPATIENT: No Changes since office visit: Yes Patient answered all questions; No Cold of Flu in the past 2 weeks, No New Medical Problems and No Changes in Medication Section B - Complete if H&P > 30 days Chief Complaint: Umbilical hernia without obstruction or gangrene Details of Present Illness: no change in patient symptoms Relevant Family History (Specify if Yes): No Relevant Social History: None Present Medications: see Short Stay Collaborative assessment Medical History: No relevant PMH History of Previous Operations: No relevant previous surgery Allergies: Allergies Allergy/AdvReac Type Severity Reaction Status Date / Time Seasonal Allergies Allergy Unknown Verified 04/24/24 06:10 Review of Systems Sugical H&P ROS: Negative: Constitution, Gastrointestinal and Musculoskeletal Exam Surgical H&P Exam: Normal: HEENT and Normal: Skin and Significant Findings: Abdomen (umbilical hernia) Plan Diagnosis/Plan: Unchanged I have reviewed the history and physical and performed a pertinent physical examination on my patient. No changes have occurred unless specified. Time Spent With Patient Time: Total time managing care of this patient today ____ minutes.
--- NOTE | 2024-04-24 08:13 | W.PM.OPN ---
Operative Note Operative Note Date of Service: 04/24/24 Narrative: Preoperative diagnosis: Umbilical hernia, reducible 2 cm Postoperative diagnosis:same Procedure: Repair of Umbilical hernia, reducible, with mesh Surgeon: Castillo Slade MD Contact Lens Assistant: Zuly Hightower PA-C Anesthesia: General LMA Indications for procedure: 49-year-old male patient presenting with complaints of an umbilical hernia which is been present for several years and is increasing in size. Recommend on examination he was found to have a reducible umbilical hernia measuring approximately 2 cm in diameter. Operative findings: A proximally 2 cm umbilical hernia, reducible Specimen: None Estimated blood loss: Less than 2 mL Complications: None Procedure details: Patient was brought to the OR and placed in a supine position. After administering general anesthesia the patient's abdomen was prepped with ChloraPrep and draped in a sterile fashion. A surgical time-out was called the consent confirmed. Patient received preoperative antibiotics and Venodyne boots were in place. Local anesthesia was then infiltrated over the umbilicus and a transverse incision curvilinear fashion made above the umbilicus. This was carried out through subcutaneous tissue up to the hernia sac. The umbilical skin was then dissected off the fascia using electrocautery. The hernia sac was then dissected down to the fascial edge. This was then reduced into the preperitoneal space. Preperitoneal space was further dissected using electrocautery. A 4.3 cm round Ventralex mesh was then obtained. This was deployed within the preperitoneal space and secured in 4 quadrants using 0 Tycron sutures. Fascia was then closed over the mesh using [id number] 0 Tycron sutures. Wounds were then irrigated with saline solution and suctioned dry. Umbilical skin was then secured to the fascial edge using a 3-0 Polysorb suture. Dermis was reapproximated using interrupted 3-0 Polysorb sutures. Skin was then closed using a running subcuticular 4-0 Polysorb suture. Steri-Strips, 2 x 2 gauze and Tegaderm were then applied. The patient tolerated the procedure well. Sponge, instrument, and needle counts reported as correct. The patient was transferred to PACU in stable condition.
== END 2024-04-24 09:25 | disposition home or self-care (01) ==
LOC: HO.PT 05:51 → HO.SSS 06:50
PROVIDERS: PCP Internal Medicine; Visit Provider Surgery
PROC: (CPT 49591; principal; 2024-04-24 07:30)
DX: K42.9 Umbilical hernia without obstruction or gangrene (principal); J30.2 Other seasonal allergic rhinitis; G47.33 Obstructive sleep apnea (adult) (pediatric); D75.1 Secondary polycythemia; F41.1 Generalized anxiety disorder; E66.9 Obesity, unspecified; Z68.31 Body mass index [BMI] 31.0-31.9, adult; Z79.82 Long term (current) use of aspirin; Z79.899 Other long term (current) drug therapy; Z87.891 Personal history of nicotine dependence
CPT/HCPCS: 49591; C1781; J0690; J1100; J2003; J2250; J2405; J2704; J2795; J3010

== ENCOUNTER → 2024-04-24 05:51 | Outpatient (BNV) | payer OTHER, SELFPAY | PROVIDERS: PCP Internal Medicine; Visit Provider Surgery | DX: K42.9 Umbilical hernia without obstruction or gangrene (principal) | CPT/HCPCS: 49591 ==

== ENCOUNTER 2024-04-30 09:34 | Outpatient (AMB) | payer OTHER, SELFPAY ==
--- NOTE | 2024-04-30 09:48 | A.OFFPC_ITS ---
Vital Signs 04/30/24 09:49 Height 5 ft 11 in Weight 220 lb BMI 30.7 BP 130/84 Blood Pressure Location Lt brachial Position Sitting Pulse 95 Pulse Source Pulse Oximeter Pulse Oximetry (%) 97 Oxygen Delivery Method Room Air Intake Visit Reasons: blood pressure, cholesterol Intake Note: Patient is here to follow up on BP check and Cholesterol. Pt decline flu shot today. Shadow Graph Weight Operator Required: No Senior Tax Manager: Not Required per policy Accompanied by: Self / Same As Patient Allergies Seasonal Allergies Allergy (Verified 04/30/24 09:48) Unknown Tobacco use date assessed: 04/30/24 Dental Screening Dental Screen Date: 12/13/23 HPI blood pressure, cholesterol HPI Details 49-year-old obese male with a history of some obstructive sleep apnea hypercholesterolemia generalized anxiety disorder coming in for follow-up. Last seen in November 2023 having an elevated blood pressure. On follow-up today the blood pressure is better patient has a history of erythrocytosis also and follows up with Hematology-Oncology having therapeutic phlebotomy. April 24 2024 had umbilical hernia repair under Dr. Slade [facility] Medical History (Updated 04/24/24 @ 11:35 by Ovi Verma MD) COVID-19 Erythrocytosis Generalized anxiety disorder Insomnia, idiopathic Acute seasonal allergic rhinitis Obesity (BMI 30.0-34.9) Obstructive sleep apnea Surgical History History of umbilical hernia repair (04/24/24) History of colonoscopy Hx of wisdom tooth extraction Hx of LASIK Hx of appendectomy Family History Father Stroke Mother No problems noted. Sister Healthy adult Brother Healthy adult Mother Breast cancer Maternal Grandfather Heart attack Social History Household Members: Significant Other Housing: House Are you a primary memory care program resident to a significant other at home: No Do you presently have visiting nurse or other home services: No Alcohol intake: current Alcohol intake frequency: holidays/special occasions only Comment: once a week 2-3 drinks Patient Tobacco Use Status: Former Tobacco user Tobacco use type: Cigarette Years Smoked: 1 e-Cigarette/Vaping Use: Never Used Second Hand Smoke Exposure: No service: No Current occupational status: employed Current occupational exposures/hazards: No Cognitive needs: No Hearing needs: No Vision needs: No Questionnaire Thrive Questionnaire Date Thrive assessed: 12/13/23 Are you currently unemployed and looking for a job?: No AUDIT C Alcohol Use Questionnaire (AUDIT-C) 2. How many drinks containing alcohol do you have on a typical day when you are drinking?: 1 or 2 3. How often do you have six or more drinks on one occasion?: Never Total Score: 0 AURY-7 AMB Questionnaire AURY-7 Date AURY - 7 assessed: 12/13/23 Source: Developed by Drs. Song Wolff, Cyndi Marie, Bernardo Garay and colleagues, with an educational nikkie from [employer]. Physical exam (Primary Care) Vital Signs: Last Vital Signs Pulse 95 04/30/24 09:49 BP 130/84 04/30/24 09:49 Pulse Ox 97 04/30/24 09:49 Oxygen Delivery Method Room Air 04/30/24 09:49 BMI result Body Mass Index 30.7 Tobacco/Smoking Status: Tobacco use Status Tobacco use date assessed 04/30/24 04/30/24 09:53 Patient Tobacco Use Status Former Tobacco user 04/30/24 09:53 Tobacco use type Cigarette 04/30/24 09:53 e-Cigarette/Vaping Use Never Used 04/30/24 09:53 Thrive Assessment: Date of Thrive Assessment Date Thrive assessed 12/13/23 04/30/24 09:53 Const General: alert; No acute distress Eyes Conjunctivae: conjunctivae normal Resp Auscultation: clear to auscultation bilaterally Cardio Rate: regular rate Rhythm: regular rhythm GI Inspection: Yes normal to inspection Extrem General: Yes normal to inspection and No edema Coding Level of Care Code Est Pt Level 4 (38443) Diagnoses Blood pressure elevated without history of HTN R03.0 Hypercholesterolemia E78.00 Erythrocytosis D75.1 Obesity (BMI 30.0-34.9) E66.9 Obstructive sleep apnea G47.33 Umbilical hernia without obstruction and without gangrene K42.9 Obstruction and gangrene presence: without obstruction or gangrene Assessment & Plan Assessment & Plan (1) Blood pressure elevated without history of HTN: Code(s): R03.0 - Elevated blood-pressure reading, without diagnosis of hypertension Category: Medical Plan: Noted to have an elevated blood pressure. (2) Hypercholesterolemia: Code(s): E78.00 - Pure hypercholesterolemia, unspecified Category: Medical Plan: Avoid fried foods, chicken skin, eggs, butter margarine, pastries and meat. Be it pork or beef they have a lot of cholesterol LDL goal of less than 130 and triglyceride of less than 150 (3) Erythrocytosis: Code(s): D75.1 - Secondary polycythemia Category: Medical Plan: Patient continues to have therapeutic phlebotomy under Hematology-Oncology (4) Obesity (BMI 30.0-34.9): Code(s): E66.9 - Obesity, unspecified Category: Medical Plan: Noted weight loss. Continue with diet and exercise (5) Obstructive sleep apnea: Comment: CPAP-sleep study test 2017 Code(s): G47.33 - Obstructive sleep apnea (adult) (pediatric) Category: Medical Plan: Continue to use the CPAP more than 4 hours a night and benefits from this (6) Umbilical hernia: Comment: Umbilical hernia repair April [address]24 Dr. Slade Code(s): K42.9 - Umbilical hernia without obstruction or gangrene Category: Medical Qualifiers: Obstruction and gangrene presence: without obstruction or gangrene Qualified Code(s): K42.9 - Umbilical hernia without obstruction or gangrene Plan: Status post repair. doing good
[2024-04-30 09:49] VITALS: BP 130/84; PULSE 95; O2SAT 97; BMI 30.7
== END 2024-04-30 10:17 | disposition home or self-care (01) ==
PROVIDERS: PCP Internal Medicine; Visit Provider Internal Medicine
DX: R03.0 Elevated blood-pressure reading, without diagnosis of hypertension (principal); E66.811 Obesity, class 1; Z68.30 Body mass index [BMI] 30.0-30.9, adult; E78.00 Pure hypercholesterolemia, unspecified; D75.1 Secondary polycythemia; G47.33 Obstructive sleep apnea (adult) (pediatric); K42.9 Umbilical hernia without obstruction or gangrene

== ENCOUNTER → 2024-04-30 09:34 | Outpatient (BNVA) | payer OTHER, SELFPAY | PROVIDERS: PCP Internal Medicine; Visit Provider Internal Medicine ==

== ENCOUNTER 2024-05-03 08:49 | Outpatient (AMB) | payer OTHER, SELFPAY ==
--- NOTE | 2024-05-03 08:53 | MHC.OFFVIS ---
Intake Visit Reasons: S/P umbilical hernia Intake Note: Patient is seen in office for post op assestment post Repair of umbilical hernia repair. Pt denies any pain or redness. Director Of Vocational Guidance Required: No Accompanied by: Self / Same As Patient Allergies Seasonal Allergies Allergy (Verified 05/03/24 08:53) Unknown HPI Comments Details: 49-year-old male patient status post repair of an umbilical hernia on 04/24/2024. He reports feeling much improved with no abdominal pain, nausea or vomiting. He denies any bleeding or discharge from the incision. [facility] Medical History COVID-19 Erythrocytosis Generalized anxiety disorder Insomnia, idiopathic Acute seasonal allergic rhinitis Obesity (BMI 30.0-34.9) Obstructive sleep apnea Surgical History History of umbilical hernia repair (04/24/24) History of colonoscopy Hx of wisdom tooth extraction Hx of LASIK Hx of appendectomy Family History Father Stroke Mother No problems noted. Sister Healthy adult Brother Healthy adult Mother Breast cancer Maternal Grandfather Heart attack Social History Household Members: Significant Other Housing: House Are you a primary hospice patient care secretary to a significant other at home: No Do you presently have visiting nurse or other home services: No Alcohol intake: current Alcohol intake frequency: holidays/special occasions only Comment: once a week 2-3 drinks Patient Tobacco Use Status: Former Tobacco user Tobacco use type: Cigarette Years Smoked: 1 e-Cigarette/Vaping Use: Never Used Second Hand Smoke Exposure: No service: No Current occupational status: employed Current occupational exposures/hazards: No Cognitive needs: No Hearing needs: No Vision needs: No Physical Exam Const General: no acute distress Nutritional Appearance: well nourished Orientation/consciousness: patient oriented x3 Resp Effort & Inspection: normal respiratory effort, no audible wheezes, no cough and no respiratory distress GI Other: Umbilical incision is clean, dry, and intact. No hernia noted with Valsalva maneuvers. No evidence of hernia recurrence or infection. Abdomen image: 1. Incision in umbilicus. Skin Other: Warm, dry, no rash Neuro General: patient oriented x3 Assessment & Plan Assessment & Plan (1) Umbilical hernia: Comment: Umbilical hernia repair April [address]24 Dr. Slade Code(s): K42.9 - Umbilical hernia without obstruction or gangrene Category: Medical Qualifiers: Obstruction and gangrene presence: without obstruction or gangrene Qualified Code(s): K42.9 - Umbilical hernia without obstruction or gangrene Plan 49-year-old male patient status post repair of an umbilical hernia. He tolerated the procedure well and his wounds are healing nicely. He should continue to avoid lifting greater than 10 lb for one-month following the surgery after which he may return to normal activity. He should follow up as needed. Coding Level of Care Code Global (99449) Diagnoses Umbilical hernia without obstruction and without gangrene K42.9 Obstruction and gangrene presence: without obstruction or gangrene
== END 2024-05-03 09:12 | disposition home or self-care (01) ==
PROVIDERS: PCP Internal Medicine; Visit Provider Surgery
DX: K42.9 Umbilical hernia without obstruction or gangrene (principal)
CPT/HCPCS: 99212

== ENCOUNTER → 2024-05-03 08:49 | Outpatient (BNVA) | payer OTHER, SELFPAY | PROVIDERS: PCP Internal Medicine; Visit Provider Surgery ==

== ENCOUNTER 2024-05-10 09:41 | Outpatient (AMB) | payer OTHER, SELFPAY ==
[2024-05-10 09:41] VITALS: BP 138/92; BMI 31.9
--- NOTE | 2024-05-10 09:41 | A.OFFVIS_ITS ---
Vital Signs 05/10/24 09:41 Height 5 ft 11 in Weight 229 lb BMI 31.9 BP 138/92 H Blood Pressure Location Rt brachial Position Sitting Intake Visit Reasons: INP-LUIS Intake Note: Patient presents for sleep apnea Allergies Seasonal Allergies Allergy (Verified 05/10/24 09:45) Unknown Medication List - Last Reconciled 05/14/24 by Alessandra Glasgow MD aspirin 81 mg PO DAILY [AUTO PAP 6-16 cm H20 humidified AIR As directed] cholecalciferol (vitamin D3) (Vitamin D3) 25 mcg PO DAILY fluticasone propionate 50 mcg/actuation 1 spray intranasal DAILY PRN olopatadine 0.2% 1 drp ophthalmic (eye) BEDTIME PRN HPI Comments Details: 49y.o male with obstructive sleep apnes on CPAP comes for further management. He was diagnosed with LUIS over 5 years ago and has been on CPAP since then . It has helped his sleep and excessive daytime sleepiness. he has h/o erythrocytosis. He had a sleep study as part of investigation for the cause of erythrocytosis, how ever treatment of sleep apnea did not improve his blood disorder. He gets regular phlebotomies for management. He denies nay difficulty using his CPAP. He used to have loud snoring, restless legs sydnrome and witnessed apneas prior to using CPAP. He sleep 7-8 hrs a night, has 2-3 arousals but can sleep back . He denies any daytime sleepiness. He reports being under stress because of work schedule. [facility] Medical History COVID-19 Erythrocytosis Generalized anxiety disorder Insomnia, idiopathic Acute seasonal allergic rhinitis Obesity (BMI 30.0-34.9) Obstructive sleep apnea Surgical History History of umbilical hernia repair (04/24/24) History of colonoscopy Hx of wisdom tooth extraction Hx of LASIK Hx of appendectomy Family History Father Stroke Mother No problems noted. Sister Healthy adult Brother Healthy adult Mother Breast cancer Maternal Grandfather Heart attack Social History Household Members: Significant Other Housing: House Are you a primary home health care case manager to a significant other at home: No Do you presently have visiting nurse or other home services: No Alcohol intake: current Alcohol intake frequency: holidays/special occasions only Comment: once a week 2-3 drinks Patient Tobacco Use Status: Former Tobacco user Tobacco use type: Cigarette Years Smoked: 1 e-Cigarette/Vaping Use: Never Used Second Hand Smoke Exposure: No service: No Current occupational status: employed Current occupational exposures/hazards: No Cognitive needs: No Hearing needs: No Vision needs: No Physical Exam Vital Signs: Last Vital Signs BP 138/92 H 05/10/24 09:41 BMI result Body Mass Index 31.9 Const General: cooperative, healthy appearing, comfortable and no acute distress Nutritional Appearance: overweight Orientation/consciousness: patient oriented x3 Eyes Pupils: Equal, round and reactive pupils present Neuro General: patient oriented x3, gait normal, tone normal, moves all extremities and no focal motor deficits Cranial nerves: Yes Facial sensation intact/muscles of mastication intact, Yes Equal, round and reactive pupils present, Yes Bilaterally intact EOM present, Yes Nystagmus not present, Yes Normal facial strength present, Yes Midline tongue present and Yes Symmetric palate elevation present Cognition (Neuro): normal cognition Gait exam (Neuro): Normal gait present Motor exam (neuro): 5/5 motor strength present throughout Assessment & Plan Assessment & Plan (1) Obstructive sleep apnea: Comment: CPAP-sleep study test 2018 Code(s): G47.33 - Obstructive sleep apnea (adult) (pediatric) Category: Medical Plan Continue CPAP Compliance stressed Will do repeat HST for reevaluation Orders: Orders RT home sleep study Today G47.10 - Hypersomnia, unspecified, R06.83 - Snoring Coding Level of Care Code New Pt Level 4 (68523) Diagnoses Obstructive sleep apnea G47.33
== END 2024-05-10 10:19 | disposition home or self-care (01) ==
PROVIDERS: PCP Internal Medicine; Visit Provider Psychiatry & Neurology Neurology
DX: G47.33 Obstructive sleep apnea (adult) (pediatric) (principal)
CPT/HCPCS: 99204

== ENCOUNTER → 2024-05-10 09:41 | Outpatient (BNVA) | payer OTHER, SELFPAY | PROVIDERS: PCP Internal Medicine; Visit Provider Psychiatry & Neurology Neurology ==

== ENCOUNTER 2024-05-17 12:59 | Outpatient (REF) | payer OTHER, SELFPAY | END 2024-05-17 13:00 | disposition home or self-care (01) | LOC: HO.BBR 12:59 | PROVIDERS: PCP Internal Medicine; Visit Provider Internal Medicine Medical Oncology | DX: D75.1 Secondary polycythemia (principal) | CPT/HCPCS: 85014; 85018; 99195 ==

== ENCOUNTER → 2024-06-24 11:01 | Outpatient (REF) | payer OTHER, SELFPAY | LOC: HO.SL 11:01 | PROVIDERS: PCP Internal Medicine; Visit Provider Psychiatry & Neurology Neurology | DX: G47.10 Hypersomnia, unspecified (principal); R06.83 Snoring | CPT/HCPCS: 95806 ==

== ENCOUNTER → 2024-06-24 11:12 | Outpatient (BNV) | payer OTHER, SELFPAY | PROVIDERS: PCP Internal Medicine; Visit Provider Psychiatry & Neurology Neurology | DX: G47.33 Obstructive sleep apnea (adult) (pediatric) (principal) | CPT/HCPCS: 95806 ==

== ENCOUNTER 2024-08-23 13:01 | Outpatient (REF) | payer OTHER, SELFPAY ==
[2024-08-23 13:10] LABS: MANUAL DIFF FLAG NO
[2024-08-23 13:13] LABS: Basophils Absolute Auto 0.1 X10*3/uL (0.0-0.2); Basophils Percent Auto 1.3 % (0-2); Eosinophils Absolute Auto 0.1 X10*3/uL (0.0-0.4); Eosinophils Percent Auto 1.9 % (0-4); Hematocrit 50.1 % (42.0-52.0); Hemoglobin 16.6 g/dl (14.0-18.0); Imm Gran Abs Auto 0.02 X10*3/uL (0.00-0.03); Imm Gran Pct Auto 0.3 % (0.0-0.4); Lymphocytes Absolute Auto 1.8 X10*3/uL (1.2-4.9); Lymphocytes Percent Auto 28.7 % (20-40); Mean Corpuscular HGB Conc 33.1 g/dl (31.0-36.0); Mean Corpuscular Hemoglobin 26.9 pg (27.0-33.0); Mean Corpuscular Volume 81.2 fL (80.0-98.0); Mean Platelet Volume 9.5 fL (9.4-12.4); Monocytes Absolute Auto 0.6 X10*3/uL (0.1-1.2); Monocytes Percent Auto 10.3 % (2-11); Neutrophils Absolute Auto 3.6 x10*3/uL (2.0-8.3); Neutrophils Percent Auto 57.5 % (45-73); Platelet Count 258 X10*3/uL (160-400); Red Blood Count 6.17 X10*6/uL (4.60-5.80); Red Cell Distribution Width 15.6 % (11.0-16.0); White Blood Count 6.2 X10*3/uL (4.8-10.8)
[2024-08-23 14:20] LABS: Alanine Aminotransferase 42 U/L (0-40); Albumin Level 4.1 g/dL (3.5-5.0); Alkaline Phosphatase 76 U/L (39-117); Anion Gap 10 (12-20); Aspartate Amino Transferase 28 U/L (5-37); Bilirubin Total 0.6 mg/dL (0.0-1.0); Blood Urea Nitrogen 14 mg/dL (9-16); Calcium 9.7 mg/dL (8.4-10.2); Carbon Dioxide 26 mmol/L (22-29); Chloride 109 mmol/L (96-108); Estimated Glomerular Filt Rate > 60; Glucose Random 91 mg/dL (60-115); Potassium 4.3 mmol/L (3.3-5.1); Sodium 141 mmol/L (135-145); Total Protein 7.2 g/dL (6.5-8.0)
== END 2024-08-23 13:02 | disposition home or self-care (01) ==
LOC: HO.BBR 13:01
PROVIDERS: PCP Internal Medicine; Visit Provider Internal Medicine Medical Oncology
DX: D75.1 Secondary polycythemia (principal)
CPT/HCPCS: 36415; 80053; 85014; 85018; 85025; 99195

== ENCOUNTER 2024-11-29 13:00 | Outpatient (REF) | payer OTHER, SELFPAY | END 2024-11-29 13:01 | disposition home or self-care (01) | LOC: HO.BBR 13:00 | PROVIDERS: PCP Internal Medicine; Visit Provider Internal Medicine Medical Oncology | DX: D75.0 Familial erythrocytosis (principal) | CPT/HCPCS: 85018; 99195 ==

== ENCOUNTER 2025-02-21 14:03 | Outpatient (REF) | payer OTHER, SELFPAY | END 2025-02-21 14:04 | disposition home or self-care (01) | LOC: HO.BBR 14:03 | PROVIDERS: PCP Internal Medicine; Visit Provider Internal Medicine Medical Oncology | DX: D75.1 Secondary polycythemia (principal) | CPT/HCPCS: 85018; 99195 ==

== ENCOUNTER 2025-02-26 08:24 | Outpatient (REF) | payer OTHER, SELFPAY ==
[2025-02-26 08:36] LABS: MANUAL DIFF FLAG NO
[2025-02-26 08:49] LABS: Hematocrit 46.5 % (42.0-52.0); Hemoglobin 15.7 g/dl (14.0-18.0); Imm Gran Abs Auto 0.03 X10*3/uL (0.00-0.03); Imm Gran Pct Auto 0.5 % (0.0-0.4); Lymphocytes Absolute Auto 1.6 X10*3/uL (1.2-4.9); Mean Corpuscular HGB Conc 33.8 g/dl (31.0-36.0); Mean Corpuscular Hemoglobin 27.5 pg (27.0-33.0); Mean Corpuscular Volume 81.6 fL (80.0-98.0); NRBC Abs Auto 0.000 X10*3/uL (0.0-0.012); NRBC Pct Auto 0.0 /100WBC (0.0-0.2); Platelet Count 256 X10*3/uL (160-400); Red Blood Count 5.70 X10*6/uL (4.60-5.80); White Blood Count 5.7 X10*3/uL (4.8-10.8)
[2025-02-26 08:53] LABS: Alanine Aminotransferase 38 U/L (0-40); Albumin Level 4.2 g/dL (3.5-5.0); Alkaline Phosphatase 70 U/L (39-117); Anion Gap 13 (12-20); Aspartate Amino Transferase 29 U/L (5-37); Blood Urea Nitrogen 19 mg/dL (9-16); Calcium 8.7 mg/dL (8.4-10.2); Carbon Dioxide 24 mmol/L (22-29); Chloride 108 mmol/L (96-108); Estimated Glomerular Filt Rate > 60; Potassium 4.1 mmol/L (3.3-5.1); Sodium 141 mmol/L (135-145); Total Protein 6.8 g/dL (6.5-8.0)
[2025-02-27 10:02] LABS: Cholesterol 212 mg/dL (<200); HDL Cholesterol 39 mg/dL (>40); Triglycerides 147 mg/dL (<150)
== END 2025-02-26 08:25 | disposition home or self-care (01) ==
LOC: HO.LAB 08:24
PROVIDERS: PCP Internal Medicine; Visit Provider Nurse Practitioner Family
DX: D75.1 Secondary polycythemia (principal); Z13.220 Encounter for screening for lipoid disorders
CPT/HCPCS: 36415; 80053; 80061; 85025

== ENCOUNTER 2025-03-05 14:20 | Outpatient (AMB) | payer OTHER, SELFPAY ==
[2025-03-05 14:36] VITALS: BP 132/70; PULSE 91; TEMP 36.4; O2SAT 97; BMI 31.9
--- NOTE | 2025-03-05 14:36 | A.OFFPC_ITS ---
Vital Signs 03/05/25 14:36 Height 5 ft 11 in Weight 228 lb 8 oz BMI 31.9 BP 132/70 Blood Pressure Location Lt brachial Position Sitting Pulse 91 Pulse Source Pulse Oximeter Temp 97.5 F Temp Source Temporal Artery Scan Pulse Oximetry (%) 97 Oxygen Delivery Method Room Air Intake Visit Reasons: Annual Exam Intake Note: Patient is here today for a physical. Director Social Service Required: No Bird Sitter: Not Required per policy Accompanied by: Self / Same As Patient Allergies Seasonal Allergies Allergy (Verified 03/05/25 14:36) Unknown Medication List - Last Reconciled 03/05/25 by Ovi Verma MD aspirin 81 mg PO DAILY [AUTO PAP 6-16 cm H20 humidified AIR As directed] cholecalciferol (vitamin D3) (Vitamin D3) 25 mcg PO DAILY fluticasone propionate 50 mcg/actuation 1 spray intranasal DAILY PRN olopatadine 0.2% 1 drp ophthalmic (eye) BEDTIME PRN Tobacco use date assessed: 03/05/25 Dental Screening Dental Screen Date: 03/05/25 Did you have a dental visit in the last 12 months?: Yes Did you have a dental problem in the last 6 months where you did not have access to dental care?: No Was dental information given to patient?: Patient has dentist [facility] Medical History COVID-19 Erythrocytosis Generalized anxiety disorder Insomnia, idiopathic Acute seasonal allergic rhinitis Obesity (BMI 30.0-34.9) Obstructive sleep apnea Surgical History History of umbilical hernia repair (04/24/24) History of colonoscopy Hx of wisdom tooth extraction Hx of LASIK Hx of appendectomy Family History Father Stroke Mother No problems noted. Sister Healthy adult Brother Healthy adult Mother Breast cancer Maternal Grandfather Heart attack Social History (Updated 03/05/25 @ 15:08 by Ovi Verma MD) Household Members: Significant Other Housing: House Are you a primary career placement services counselor to a significant other at home: No Do you presently have visiting nurse or other home services: No Alcohol intake: current Alcohol intake frequency: holidays/special occasions only Comment: once a week 1-2 drinks, Patient Tobacco Use Status: Former Tobacco user Tobacco use type: Cigarette Years Smoked: 1 e-Cigarette/Vaping Use: Never Used Second Hand Smoke Exposure: Yes service: No Current occupational status: employed Current occupational exposures/hazards: No Cognitive needs: No Hearing needs: No Vision needs: No Questionnaire PHQ-9 Over the last 2 weeks, how often have you been bothered by any of the following problems? 1. Little interest or pleasure in doing things: not at all 2. Feeling down, depressed, or hopeless: not at all 3. Trouble falling or staying asleep, or sleeping too much: not at all 4. Feeling tired or having little energy: not at all 5. Poor appetite or overeating: not at all 6. Feeling bad about yourself - or that you are a failure or have let yourself or your family down: not at all 7. Trouble concentrating on things, such as reading the newspaper or watching television: not at all 8. Moving or speaking so slowly that other people could have noticed. Or the opposite - being so fidgety or restless that you have been moving around a lot more than usual: not at all 9. Thoughts that you would be better off or of hurting yourself in some way: not at all Total score: 0 Depression Screening Interpretation: Negative Depression Screening Done: Yes Source: Developed by Drs. Song Wolff, Cyndi Marie, Bernardo Garay and colleagues, with an educational nikkie from [employer]. Thrive Questionnaire Date Thrive assessed: 02/27/25 I am a: Patient What is your living situation today?: I have a steady place to live Within the past 12 months, did the food you bought not last and you didn't have the money to get more?: Never true Within the past 12 months, did you worry whether your food would run out before you got money to buy more?: Never true Do you have trouble paying for medicines?: No Do you have trouble getting transportation to medical appointments?: No Do you have trouble paying your heating and electricity bill?: No Do you have trouble taking care of your child, family member or friend?: No Do you have trouble with day-to-day activities such as bathing, preparing meals, shopping, managing finances, etc.?: No Are you currently unemployed and looking for a job?: No Are you interested in more education?: No Please select the resources that you would like help with: None Currently or been in a relationship where the following occur: No concerns reported THRIVE Score: 0 AUDIT C Alcohol Use Questionnaire (AUDIT-C) 1. How often do you have a drink containing alcohol?: 2-4 times a month 2. How many drinks containing alcohol do you have on a typical day when you are drinking?: 1 or 2 3. How often do you have six or more drinks on one occasion?: Never Total Score: 2 AURY-7 AMB Questionnaire AURY-7 Date AURY - 7 assessed: 03/05/25 Feeling nervous, anxious, or on edge: 0 = Not at all Not being able to stop or control worryin = Not at all Worrying too much about different things: 0 = Not at all Trouble relaxin = Not at all Being so restless that it is hard to sit still: 0 = Not at all Becoming easily annoyed or irritable: 0 = Not at all Feeling afraid as if something awful might happen: 0 = Not at all Total AURY-7 score (0-4 normal; 5-9 mild; 10-14 moderate; 15-21 severe): 0 Source: Developed by Drs. Song Wolff, Cyndi Marie, Bernardo Garay and colleagues, with an educational nikkie from [employer]. Review of Systems Const Denies poor appetite and Denies weakness Eyes Denies no additional complaints ENT Reports Normal hearing present, Denies dizziness, Denies nasal congestion, Denies tinnitus and Denies sore throat Card Denies chest pain, Denies syncope, Denies rapid heart rate and Denies dyspnea Resp Denies cough and Denies dyspnea GI Denies change in stool character, Reports constipation, Denies diarrhea, Denies nausea and Denies vomiting Denies dysuria and Denies urinary frequency Neuro Reports Normal hearing present, Denies confusion, Denies dizziness, Denies syncope and Denies weakness Psych Denies confusion Physical exam (Primary Care) Vital Signs: Last Vital Signs Temp 97.5 F 03/05/25 14:36 Pulse 91 03/05/25 14:36 BP 132/70 03/05/25 14:36 Pulse Ox 97 03/05/25 14:36 Oxygen Delivery Method Room Air 03/05/25 14:36 BMI result Body Mass Index 31.9 Tobacco/Smoking Status: Tobacco use Status Tobacco use date assessed 03/05/25 03/05/25 14:40 Patient Tobacco Use Status Former Tobacco user 03/05/25 15:08 Tobacco use type Cigarette 03/05/25 15:08 e-Cigarette/Vaping Use Never Used 03/05/25 15:08 PHQ-9: PHQ-9 Score PHQ-9: Total score 0 03/05/25 15:09 Depression Screening Interpretation: Negative Thrive Assessment: Date of Thrive Assessment Date Thrive assessed 02/27/25 03/05/25 14:40 Currently or been in a relationship where the following occur: No concerns reported Const General: No confusion Orientation/consciousness: No confusion HENMT Head: Yes normocephalic Ears: external ears normal and TM's normal bilaterally Face and sinus: Yes normal facial exam Mouth: moist mucous membranes Throat: Yes tonsils normal Eyes Conjunctivae: conjunctivae normal Pupils: Equal, round and reactive pupils present and Pupil accommodation reflex normal Direct Ophthalmoscopy: normal light reflex Neck Neck: No lymphadenopathy Thyroid: Thyroid normal Chest Chest palpation & inspection: normal inspection of the chest Resp Effort & Inspection: normal respiratory effort and no audible wheezes Auscultation: clear to auscultation bilaterally, no crackles, no wheezes and lung sounds not diminished Cardio Rate: regular rate Rhythm: regular rhythm Peripheral pulses: radial pulses present and dorsalis pedis present GI Palpation (GI): no masses Auscultation: normal bowel sounds and normoactive bowel sounds Rectal Exam - Male: Yes deferred Skin General skin exam: no rashes or lesions noted Rashes: no rashes Neuro General: No confusion Cranial nerves: Yes Equal, round and reactive pupils present and Yes Normal hearing present Cognition (Neuro): normal cognition Gait exam (Neuro): Normal gait present Motor exam (neuro): 5/5 motor strength present throughout Deep tendon reflexes (DTR's): Right brachioradialis reflex intensity grade: 2+, Left brachioradialis reflex intensity grade: 2+, Right patellar reflex intensity grade: 2+ and Left patellar reflex intensity grade: 2+ Extrem General: No edema Coding Level of Care Code Est Pt Prev Care 40-64y(04811) Diagnoses Annual physical exam Z00.00 Obstructive sleep apnea G47.33 Erythrocytosis D75.1 Umbilical hernia without obstruction and without gangrene K42.9 Obstruction and gangrene presence: without obstruction or gangrene Obesity (BMI 30.0-34.9) E66.9 Hypercholesterolemia E78.00 Generalized anxiety disorder F41.1 Hepatic steatosis K76.0 Assessment & Plan Assessment & Plan (1) Annual physical exam: Code(s): Z00.00 - Encounter for general adult medical examination without abnormal findings Category: Medical Plan: Patient is advised to eat healthy, keep well hydrated, keep active and have adequate sleep. (2) Obstructive sleep apnea: Comment: CPAP-sleep study test 2024 mild AHI 11 Code(s): G47.33 - Obstructive sleep apnea (adult) (pediatric) Category: Medical Plan: Patient on CPAP, retesting showing mild obstructive sleep apnea with an AHI of 11 (3) Erythrocytosis: Code(s): D75.1 - Secondary polycythemia Category: Medical Plan: Patient follows up with Hematology-Oncology and having therapeutic phlebotomy and on aspirin (4) Umbilical hernia: Comment: Umbilical hernia repair April [address]24 Dr. Slade Code(s): K42.9 - Umbilical hernia without obstruction or gangrene Category: Medical Qualifiers: Obstruction and gangrene presence: without obstruction or gangrene Qualified Code(s): K42.9 - Umbilical hernia without obstruction or gangrene Plan: Status post repair (5) Obesity (BMI 30.0-34.9): Code(s): E66.9 - Obesity, unspecified Category: Medical Plan: Diet and exercise (6) Hypercholesterolemia: Code(s): E78.00 - Pure hypercholesterolemia, unspecified Category: Medical Plan: Avoid fried foods, chicken skin, eggs, butter margarine, pastries and meat. Be it pork or beef they have a lot of cholesterol LDL goal of less than 130 and triglyceride of less than 150 (7) Generalized anxiety disorder: Code(s): F41.1 - Generalized anxiety disorder Category: Medical Plan: Stable (8) Hepatic steatosis: Comment: 2016 liver [place] Code(s): K76.0 - Fatty (change of) liver, not elsewhere classified Category: Medical Plan: Low-fat diet and exercise Plan History of Present Illness The patient is a 50-year-old male presenting for an annual physical examination and management of chronic conditions. The patient has a history of obstructive sleep apnea, confirmed by a sleep study in June 2024, showing a mild degree of sleep apnea with an Apnea-Hypopnea Index (AHI) of 11. He is currently using a CPAP machine for management. The patient also has generalized anxiety disorder and hypercholesterolemia. His LDL cholesterol remains elevated at 144 mg/dL, and he is on a cholesterol management plan with a goal of reducing LDL to less than 130 mg/dL and triglycerides to less than 150 mg/dL. The patient has erythrocytosis and secondary polycythemia, for which he is undergoing therapeutic phlebotomy and is on aspirin therapy. He follows up with hematology and oncology for these conditions. The patient underwent umbilical hernia repair in April 2024 and has been following up with the surgeon postoperatively. In 2016, an ultrasound revealed hepatic steatosis. Health Maintenance - Cholesterol management plan with LDL goal of less than 130 mg/dL and triglyceride goal of less than 150 mg/dL Social History Review of Systems Physical Exam General: Cooperative, healthy appearing, comfortable, no acute distress and well developed Orientation: Patient oriented x3 Limitations: No limitations Head: Normal to inspection Ears: Hearing grossly normal bilaterally Nose: Normal external nose present Face and sinus: Normal facial exam Eyes: Appearance normal, both eyes and all related structures Neck: Normal visual inspection and Yes full ROM Respiratory: Normal respiratory effort and able to speak in complete sentences. Clear to auscultation bilaterally Cardiovascular: Regular rate and rhythm. Normal S1 and S2 GI: Normal to inspection. Soft to palpation and nontender Skin: No rashes or lesions noted Neuro: Patient oriented x3 Extremities: Normal to inspection Results - Labs: Normal blood count, normal electrolytes, renal function increased to 1.04, sugar level at 100, normal liver function, LDL cholesterol elevated at 144 mg/dL - Tests: Sleep study in June 2024 showing mild obstructive sleep apnea with an AHI of 11 - Imagin ultrasound showing hepatic steatosis Plan The patient will continue using CPAP for obstructive sleep apnea management, with follow-up sleep studies as needed to monitor the condition. For hypercholesterolemia, the patient is advised to adhere to a low-fat diet and regular exercise, aiming to achieve an LDL cholesterol level of less than 130 mg/dL and triglycerides of less than 150 mg/dL. The patient will continue therapeutic phlebotomy and aspirin therapy for erythrocytosis and secondary polycythemia, with regular follow-ups with hematology and oncology to monitor progress. Postoperative follow-up with the surgeon will continue for the umbilical hernia repair. Patient was informed and verbally consented to the use of an ambient scribe for clinic note documentation during this visit. Discussion Notes Had a long discussion with the patient regarding blood work getting cholesterol under better control. Patient does have the fatty liver. Patient Instructions Discussion about keeping active keeping well hydrated and eating healthy. Discussion about getting weight under control with more engaging exercises.
== END 2025-03-05 15:26 | disposition home or self-care (01) ==
LOC: HO.HMCH 14:21
PROVIDERS: PCP Internal Medicine; Visit Provider Internal Medicine
DX: Z00.00 Encounter for general adult medical examination without abnormal findings (principal); E66.9 Obesity, unspecified; Z68.31 Body mass index [BMI] 31.0-31.9, adult; G47.33 Obstructive sleep apnea (adult) (pediatric); D75.1 Secondary polycythemia; K42.9 Umbilical hernia without obstruction or gangrene; E78.00 Pure hypercholesterolemia, unspecified; F41.1 Generalized anxiety disorder; K76.0 Fatty (change of) liver, not elsewhere classified

== ENCOUNTER 2025-05-30 11:59 | Outpatient (REF) | payer OTHER, SELFPAY | END 2025-05-30 12:00 | disposition home or self-care (01) | LOC: HO.BBR 11:59 | PROVIDERS: PCP Internal Medicine; Visit Provider Internal Medicine Medical Oncology | DX: D75.1 Secondary polycythemia (principal) | CPT/HCPCS: 85018; 99195 ==